=== PATIENT | female | born 1985 | race Caucasian/White ===

== ENCOUNTER 2017-04-23 02:48 | Emergency (ER) | payer MEDICAID ==
[2017-04-23 02:55] VITALS: TEMP 97.7
[2017-04-23] MEDS ORDERED: SODIUM CHLORIDE 0.9% 1,000 ML IV STA (03:03)
[2017-04-23] MEDS ORDERED: ONDANSETRON 4 MG/2 ML VIAL IVP STA (03:03)
[2017-04-23] MEDS ORDERED: MORPHINE SULFATE 4 MG/ML SYRINGE IV STA (03:03)
--- NOTE | 2017-04-23 03:06 | ED ---
General Adult HPI - General Chief complaint: Nausea/Vomiting/Diarrhea Stated complaint: Abd pain, SOB Time Seen by Provider: 04/23/17 03:01 Source: patient, RN notes reviewed Mode of arrival: wheelchair Limitations: no limitations - History of Present Illness Initial comments: 31-year-old female presents emergency Department chief complaint abdominal pain , nausea diarrhea. Patient states it woke up out of sleep. Patient states she has epigastric pain. She states it's nonradiating. She's had prior appendectomy no other abdominal surgeries. Denies any chest pain. She states that the pain is making her short of breath though she got short of breath at rest. Patient denies any fevers or chills. Denies dysuria, hematuria, flank pain, chance , sick contacts. Patient denies any other complaints. - Related Data Home Medications Medication Instructions Recorded Confirmed ALPRAZolam [Xanax] 0.25 mg PO Q8HR PRN 08/29/15 08/29/15 Eletriptan [Relpax] 40 mg PO DAILY PRN 08/29/15 08/29/15 Levothyroxine Sodium [Synthroid] 25 mcg PO DAILY 08/29/15 08/29/15 Multivitamins, Thera [Theragran] 1 each PO DAILY@1200 08/29/15 08/29/15 Vortioxetine Hydrobromide 20 mg PO DAILY 08/29/15 08/29/15 [Brintellix] metFORMIN HCL [Glucophage] 500 mg PO TID 08/29/15 08/29/15 Allergies Allergy/AdvReac Type Severity Reaction Status Date / Time horse radish Allergy Anaphylaxis Uncoded 04/23/17 02:55 olives Allergy Rash/Hives Uncoded 04/23/17 02:55 Review of Systems ROS Statement: Those systems with pertinent positive or pertinent negative responses have been documented in the HPI. ROS Other: All systems not noted in ROS Statement are negative. Past Medical History Past Medical History: Thyroid Disorder Additional Past Medical History / Comment(s): Insulin Resistance History of Any Multi-Drug Resistant Organisms: None Reported Past Surgical History: Appendectomy Additional Past Surgical History / Comment(s): D&C Past Psychological History: Anxiety, Depression Smoking Status: Never smoker Past Alcohol Use History: None Reported Past Drug Use History: None Reported General Exam Limitations: no limitations General appearance: alert, in no apparent distress ENT exam: Present: normal oropharynx Neck exam: Present: normal inspection, full ROM. Absent: tenderness, meningismus, lymphadenopathy Respiratory exam: Present: normal lung sounds bilaterally. Absent: respiratory distress, wheezes, rales, rhonchi, stridor Cardiovascular Exam: Present: regular rate, normal rhythm, normal heart sounds. Absent: systolic murmur, diastolic murmur, rubs, gallop, clicks GI/Abdominal exam: Present: soft, tenderness (Monitor epigastric tenderness), normal bowel sounds. Absent: distended, guarding, rebound, rigid Back exam: Absent: CVA tenderness (R), CVA tenderness (L) Neurological exam: Present: alert Skin exam: Present: warm, dry, intact, normal color. Absent: rash Course Vital Signs 04/23/17 04/23/17 02:51 03:18 Temperature 97.7 F Pulse Rate 70 Respiratory 20 Rate Blood Pressure 87/54 121/60 O2 Sat by Pulse 97 Oximetry Medical Decision Making - Medical Decision Making 31-year-old female presented emergency department for epigastric abdominal pain. Patient states pain has completely resolved. She states she feels much better. Nausea has resolved. Patient's lab work showed minimal elevation in white count and liver functions. Patient's pain is not right upper quadrant she has more epigastric to left upper quadrant. Patient will be discharged at this time with close follow-up. - Lab Data Result diagrams: 04/23/17 03:15 04/23/17 03:15 Lab Results 04/23/17 04/23/17 04/23/17 Range/Units 03:15 03:15 03:15 WBC 14.2 H (3.8-10.6) k/uL RBC 4.87 (3.80-5.40) m/uL Hgb 13.8 (11.4-16.0) gm/dL Hct 41.8 (34.0-46.0) % MCV 85.8 (80.0-100.0) fL MCH 28.4 (25.0-35.0) pg MCHC 33.1 (31.0-37.0) g/dL RDW 13.2 (11.5-15.5) % Plt Count 375 (150-450) k/uL Neutrophils % 65 % Lymphocytes % 27 % Monocytes % 5 % Eosinophils % 0 % Basophils % 0 % Neutrophils # 9.3 H (1.3-7.7) k/uL Lymphocytes # 3.9 (1.0-4.8) k/uL Monocytes # 0.8 (0-1.0) k/uL Eosinophils # 0.0 (0-0.7) k/uL Basophils # 0.1 (0-0.2) k/uL Sodium 140 (137-145) mmol/L Potassium 4.1 (3.5-5.1) mmol/L Chloride 107 (98-107) mmol/L Carbon Dioxide 21 L (22-30) mmol/L Anion Gap 12 mmol/L BUN 12 (7-17) mg/dL Creatinine 0.70 (0.52-1.04) mg/dL Est GFR (MDRD) Af Amer >60 (>60 ml/min/1.73 sqM) Est GFR (MDRD) Non-Af >60 (>60 ml/min/1.73 sqM) Glucose 113 H (74-99) mg/dL Calcium 9.9 (8.4-10.2) mg/dL Total Bilirubin 0.7 (0.2-1.3) mg/dL AST 126 H (14-36) U/L ALT 96 H (9-52) U/L Alkaline Phosphatase 125 (38-126) U/L Total Protein 7.2 (6.3-8.2) g/dL Albumin 4.2 (3.5-5.0) g/dL Amylase 53 (30-110) U/L Lipase 61 (23-300) U/L Urine Color Urine Appearance (Clear) Urine pH (5.0-8.0) Ur Specific Jber (1.001-1.035) Urine Protein (Negative) Urine Glucose (UA) (Negative) Urine Ketones (Negative) Urine Blood (Negative) Urine Nitrite (Negative) Urine Bilirubin (Negative) Urine Urobilinogen (<2.0) mg/dL Ur Leukocyte Esterase (Negative) Urine RBC (0-5) /hpf Ur Squamous Epith Cells (0-4) /hpf Urine Mucus (None) /hpf Urine HCG, Qual Not Detected (Not Detectd) 04/23/17 Range/Units 03:15 WBC (3.8-10.6) k/uL RBC (3.80-5.40) m/uL Hgb (11.4-16.0) gm/dL Hct (34.0-46.0) % MCV (80.0-100.0) fL MCH (25.0-35.0) pg MCHC (31.0-37.0) g/dL RDW (11.5-15.5) % Plt Count (150-450) k/uL Neutrophils % % Lymphocytes % % Monocytes % % Eosinophils % % Basophils % % Neutrophils # (1.3-7.7) k/uL Lymphocytes # (1.0-4.8) k/uL Monocytes # (0-1.0) k/uL Eosinophils # (0-0.7) k/uL Basophils # (0-0.2) k/uL Sodium (137-145) mmol/L Potassium (3.5-5.1) mmol/L Chloride (98-107) mmol/L Carbon Dioxide (22-30) mmol/L Anion Gap mmol/L BUN (7-17) mg/dL Creatinine (0.52-1.04) mg/dL Est GFR (MDRD) Af Amer (>60 ml/min/1.73 sqM) Est GFR (MDRD) Non-Af (>60 ml/min/1.73 sqM) Glucose (74-99) mg/dL Calcium (8.4-10.2) mg/dL Total Bilirubin (0.2-1.3) mg/dL AST (14-36) U/L ALT (9-52) U/L Alkaline Phosphatase (38-126) U/L Total Protein (6.3-8.2) g/dL Albumin (3.5-5.0) g/dL Amylase (30-110) U/L Lipase (23-300) U/L Urine Color Yellow Urine Appearance Cloudy H (Clear) Urine pH 8.0 (5.0-8.0) Ur Specific Jber 1.017 (1.001-1.035) Urine Protein Trace H (Negative) Urine Glucose (UA) Negative (Negative) Urine Ketones Negative (Negative) Urine Blood Negative (Negative) Urine Nitrite Negative (Negative) Urine Bilirubin Negative (Negative) Urine Urobilinogen 2.0 (<2.0) mg/dL Ur Leukocyte Esterase Negative (Negative) Urine RBC 1 (0-5) /hpf Ur Squamous Epith Cells 2 (0-4) /hpf Urine Mucus Rare H (None) /hpf Urine HCG, Qual (Not Detectd) Disposition Clinical Impression: Abdominal pain, Nausea, Diarrhea Disposition: HOME SELF-CARE Condition: Stable Instructions: Abdominal Pain (ED) Additional Instructions: Please return to the Emergency Department if symptoms worsen or any other concerns. Referrals: Humble Babb MD [Primary Care Provider] - 1-2 days Time of Disposition: 03:53
[2017-04-23 03:24] VITALS: BP 121/60
[2017-04-23 03:31] LABS: Basophils # (A) 0.1 k/uL (0-0.2); Basophils % (A) 0 %; CH 29.2; CHCM 34.2; Eosinophils % (A) 0 %; HCT 41.8 % (34.0-46.0); HDW 2.43; HGB 13.8 gm/dL (11.4-16.0); Luc # (Auto) 0.23; Luc % (Auto) 2; Lymphocytes # (A) 3.9 k/uL (1.0-4.8); Lymphocytes % (A) 27 %; MCH 28.4 pg (25.0-35.0); MCHC 33.1 g/dL (31.0-37.0); MCV 85.8 fL (80.0-100.0); Mean Platelet Volume 6.1; Monocytes # (A) 0.8 k/uL (0-1.0); Monocytes % (A) 5 %; Neutrophils # (A) 9.3 k/uL (1.3-7.7); Neutrophils % (A) 65 %; RBC 4.87 m/uL (3.80-5.40); RDW 13.2 % (11.5-15.5); WBC 14.2 k/uL (3.8-10.6)
[2017-04-23 03:41] LABS: Appearance,Urine Cloudy (Clear); Bilirubin,Urine Negative (Negative); Glucose,Urine (UA) Negative (Negative); Ketones,Urine Negative (Negative); Leukocyte Esterase,Urine Negative (Negative); Mucus,Urine Rare /hpf; Nitrite,Urine Negative (Negative); Particle Count 8620; Protein,Urine Trace (Negative); RBC,Urine 1 /hpf (0-5); Specific Gravity,Urine 1.017 (1.001-1.035); Squamous Epithelial Cell,Urine 2 /hpf (0-4); UA Billing (MACRO vs. MICRO) MICRO
[2017-04-23 03:46] LABS: ALT 96 U/L (9-52); AST 126 U/L (14-36); Alkaline Phosphatase 125 U/L (38-126); Amylase 53 U/L (30-110); Anion Gap 12 mmol/L; Blood Urea Nitrogen 12 mg/dL (7-17); Calcium 9.9 mg/dL (8.4-10.2); Carbon Dioxide 21 mmol/L (22-30); Chloride 107 mmol/L (98-107); Glucose 113 mg/dL (74-99); Non-African American GFR(MDRD) >60 (>60 ml/min/1.73 sqM); Potassium 4.1 mmol/L (3.5-5.1); Sodium 140 mmol/L (137-145); Total Bilirubin 0.7 mg/dL (0.2-1.3); Total Protein 7.2 g/dL (6.3-8.2)
[2017-04-23 04:02] VITALS: PULSE 76; RESP 18
--- NOTE | 2017-04-23 04:12 | XR ---
EXAM: XR Abdomen Complete, 2 or More Views CLINICAL HISTORY: Reason: pain TECHNIQUE: Frontal view of the abdomen/pelvis with upright view of the abdomen. COMPARISON: No relevant prior studies available. FINDINGS: Intraperitoneal space: No free air. Surgical clips are seen within the right lower quadrant. Gastrointestinal tract: Unremarkable. No dilation. Bones/joints: Unremarkable. IMPRESSION: No acute intra-abdominal findings.
== END 2017-04-23 03:56 | disposition home or self-care (01) ==
LOC: EC 02:48
DX: R10.13 Epigastric pain (principal); R11.0 Nausea; R19.7 Diarrhea, unspecified; E07.9 Disorder of thyroid, unspecified; F32.9 Major depressive disorder, single episode, unspecified; Z91.018 Allergy to other foods; Z91.048 Other nonmedicinal substance allergy status; Z79.84 Long term (current) use of oral hypoglycemic drugs; Z79.899 Other long term (current) drug therapy
CPT/HCPCS: 99284; 96374; 96375; 96361; 36415; 80053; 82150; 83690; 85025; 81001; 81025; 74000; J2270; J2405

== ENCOUNTER 2017-06-17 21:01 | Inpatient (IN) | payer MEDICAID ==
[2017-06-17] MEDS ORDERED: SODIUM CHLORIDE 0.9% 1,000 ML IV STA (21:13)
[2017-06-17] MEDS ORDERED: ONDANSETRON 4 MG/2 ML VIAL IVP STA (21:13)
[2017-06-17] MEDS ORDERED: HYDROmorphone 1 MG/ML 1 ML SYRINGE IVP STA (21:13)
--- NOTE | 2017-06-17 21:20 | ED ---
Abdominal Pain HPI - General Source: patient, RN notes reviewed Mode of arrival: ambulatory Limitations: no limitations - History of Present Illness MD Complaint: abdominal pain <Toan Sarkar - Last Filed: 06/17/17 23:11> <Ty Saldivar - Last Filed: 06/18/17 01:02> - General Chief Complaint: Abdominal Pain Stated Complaint: Vomiting Time Seen by Provider: 06/17/17 21:09 - History of Present Illness Initial Comments: This is a pleasant 31-year-old female presents emergency department complaining of abdominal pain. Patient states that about 3 hours ago she had sudden onset of right upper quadrant abdominal pain. Pain is sharp in nature, there are no alleviating or exacerbating factors. Patient does state that she ate fried chicken at about 3 PM. Patient has vomited several times. There is no evidence of hematemesis or coffee-ground emesis. No problems with bowel movements or urination. Patient denies . Patient denies shortness of breath. Pain does radiate around to the right shoulder blade area. Patient has had pain such as this before however, this is the worst time ever. She was told previously that was a bowel spasm. (Toan Sarkar) - Related Data Home Medications Medication Instructions Recorded Confirmed ALPRAZolam [Xanax] 0.25 mg PO Q8HR PRN 08/29/15 08/29/15 Eletriptan [Relpax] 40 mg PO DAILY PRN 08/29/15 08/29/15 Levothyroxine Sodium [Synthroid] 25 mcg PO DAILY 08/29/15 08/29/15 Multivitamins, Thera [Theragran] 1 each PO DAILY@1200 08/29/15 08/29/15 Vortioxetine Hydrobromide 20 mg PO DAILY 08/29/15 08/29/15 [Brintellix] metFORMIN HCL [Glucophage] 500 mg PO TID 08/29/15 08/29/15 Allergies Allergy/AdvReac Type Severity Reaction Status Date / Time horse radish Allergy Anaphylaxis Uncoded 04/23/17 02:55 olives Allergy Rash/Hives Uncoded 04/23/17 02:55 Review of Systems ROS Other: All systems not noted in ROS Statement are negative. <Toan Sarkar - Last Filed: 06/17/17 23:11> ROS Other: All systems not noted in ROS Statement are negative. <Ty Saldivar - Last Filed: 06/18/17 01:02> ROS Statement: Those systems with pertinent positive or pertinent negative responses have been documented in the HPI. Past Medical History Past Medical History: Thyroid Disorder Additional Past Medical History / Comment(s): Insulin Resistance, depression, anxiety History of Any Multi-Drug Resistant Organisms: None Reported Past Surgical History: Appendectomy Additional Past Surgical History / Comment(s): D&C Past Psychological History: Anxiety, Depression Smoking Status: Never smoker Past Alcohol Use History: None Reported Past Drug Use History: None Reported <MelloToan - Last Filed: 06/17/17 23:11> General Exam Limitations: no limitations General appearance: alert, in distress Head exam: Present: atraumatic, normocephalic, normal inspection Eye exam: Present: normal appearance, EOMI. Absent: scleral icterus ENT exam: Present: normal exam, normal oropharynx, mucous membranes moist, normal external ear exam Neck exam: Present: normal inspection. Absent: tenderness, meningismus, lymphadenopathy Respiratory exam: Present: normal lung sounds bilaterally. Absent: respiratory distress, wheezes, rales, rhonchi, stridor Cardiovascular Exam: Present: regular rate, normal rhythm, normal heart sounds. Absent: systolic murmur, diastolic murmur, rubs, gallop, clicks GI/Abdominal exam: Present: tenderness, guarding, diminished bowel sounds, other (Positive Bob sign). Absent: rebound, rigid Expanded GI/Abdominal exam: Present: Bob's sign. Absent: psoas sign, obturator sign, heel tap sign, Rovsing's sign, tenderness at McBurney's Point, ascites Rectal exam: Present: deferred Extremities exam: Present: normal inspection, full ROM, normal capillary refill. Absent: tenderness, pedal edema, joint swelling, calf tenderness Back exam: Present: normal inspection Neurological exam: Present: alert, oriented X3, CN II-XII intact Psychiatric exam: Present: normal affect, normal mood Skin exam: Present: warm, dry, intact, normal color. Absent: rash <Toan Sarkar - Last Filed: 06/17/17 23:11> <Ty Saldivar - Last Filed: 06/18/17 01:02> - General Exam Comments Initial Comments: This is a 30-year-old female presents emergency Department in significant distress due to right upper quadrant abdominal pain (Toan Sarkar) Medical Decision Making - Lab Data Result diagrams: 06/17/17 21:20 06/17/17 21:20 <MelloToan - Last Filed: 06/17/17 23:11> - Lab Data Result diagrams: 06/17/17 21:20 06/17/17 21:20 <Ty Saldivar - Last Filed: 06/18/17 01:02> - Medical Decision Making Patient will be endorsed to Dr. Saldivar at 11:11 PM for further care and disposition. (Toan Sarkar) Vital decision making the patient's pain is a right upper quadrant. White count elevated at 21,000 with 70% neutrophils. Elevated AST ALT but her total bilirubin is only 0.9. Amylase lipase normal limits.She was started on Zosyn. The patient had eaten fried chicken earlier 3 hours prior to emergency room she is having severe right upper quadrant pain. KUB was done reviewed by radiologist and his impression is nonobstructive bowel gas pattern. Nonspecific 1 cm radial density projecting over the right iliac bone is discussed. As read by Dr. Sousa X-ray of the chest was done and reviewed by radiologist his impression is no focal consolidation as read by Dr. Sousa Ultrasound of the right upper quadrant was done because of the patient's symptoms. His radiologist's impression is liver measures approximately 16.5 cm. There is suggestion of fatty infiltration. The gallbladder is mildly distended. However, no gallstone is seen. No pericholecystic fluid or gallbladder wall thickening was demonstrated. Negative sonographic Bob's was reported., Bile duct is distended to approximately 9 mm in caliber. No sonographic evidence for choledocholithiasis. Right kidney is unremarkable. The pancreas mildly echogenic. Correlate with amylase and lipase. This is a nonspecific finding. The pancreatic tail is obscured by overlying bowel gas. Impression is #1 dilated common bile duct without sonographic evidence for choledocholithiasis. #2 hepatic steatosis. #3 questionable echogenicity of the pancreas. Nonspecific. Correlate with amylase lipase. As read by Dr. Sousa patient's feeling significantly better after IV hydration and pain medication. I did discuss with her gallbladder issues, gallstones, common bile duct stones, pancreatic stone or inflammation or problems. The plan the patient will be admitted to the hospital for evaluation by general surgery. She has seen Dr. Sweeney in the past who performed an appendectomy. (Ty Saldivar) - Lab Data Lab Results 06/17/17 06/17/17 06/17/17 Range/Units 21:20 21:20 21:20 WBC 21.9 H (3.8-10.6) k/uL RBC 5.13 (3.80-5.40) m/uL Hgb 14.8 (11.4-16.0) gm/dL Hct 44.3 (34.0-46.0) % MCV 86.2 (80.0-100.0) fL MCH 28.8 (25.0-35.0) pg MCHC 33.4 (31.0-37.0) g/dL RDW 14.0 (11.5-15.5) % Plt Count 430 (150-450) k/uL Neutrophils % 80 % Lymphocytes % 15 % Monocytes % 4 % Eosinophils % 0 % Basophils % 0 % Neutrophils # 17.5 H (1.3-7.7) k/uL Lymphocytes # 3.2 (1.0-4.8) k/uL Monocytes # 1.0 (0-1.0) k/uL Eosinophils # 0.0 (0-0.7) k/uL Basophils # 0.1 (0-0.2) k/uL PT 10.3 (9.0-12.0) sec INR 1.0 (<1.2) APTT 23.1 (22.0-30.0) sec Sodium 141 (137-145) mmol/L Potassium 3.9 (3.5-5.1) mmol/L Chloride 104 (98-107) mmol/L Carbon Dioxide 21 L (22-30) mmol/L Anion Gap 16 mmol/L BUN 15 (7-17) mg/dL Creatinine 0.80 (0.52-1.04) mg/dL Est GFR (MDRD) Af Amer >60 (>60 ml/min/1.73 sqM) Est GFR (MDRD) Non-Af >60 (>60 ml/min/1.73 sqM) Glucose 156 H (74-99) mg/dL Plasma Lactic Acid Jonathon (0.7-2.0) mmol/L Calcium 10.0 (8.4-10.2) mg/dL Total Bilirubin 0.9 (0.2-1.3) mg/dL AST 136 H (14-36) U/L ALT 91 H (9-52) U/L Alkaline Phosphatase 149 H (38-126) U/L Total Protein 7.8 (6.3-8.2) g/dL Albumin 4.8 (3.5-5.0) g/dL Amylase (30-110) U/L Lipase 62 (23-300) U/L Urine Color Urine Appearance (Clear) Urine pH (5.0-8.0) Ur Specific Ray (1.001-1.035) Urine Protein (Negative) Urine Glucose (UA) (Negative) Urine Ketones (Negative) Urine Blood (Negative) Urine Nitrite (Negative) Urine Bilirubin (Negative) Urine Urobilinogen (<2.0) mg/dL Ur Leukocyte Esterase (Negative) Ur Squamous Epith Cells (0-4) /hpf Amorphous Sediment (None) /hpf Urine Mucus (None) /hpf Urine HCG, Qual (Not Detectd) 06/17/17 06/17/17 06/17/17 Range/Units 21:20 22:23 22:23 WBC (3.8-10.6) k/uL RBC (3.80-5.40) m/uL Hgb (11.4-16.0) gm/dL Hct (34.0-46.0) % MCV (80.0-100.0) fL MCH (25.0-35.0) pg MCHC (31.0-37.0) g/dL RDW (11.5-15.5) % Plt Count (150-450) k/uL Neutrophils % % Lymphocytes % % Monocytes % % Eosinophils % % Basophils % % Neutrophils # (1.3-7.7) k/uL Lymphocytes # (1.0-4.8) k/uL Monocytes # (0-1.0) k/uL Eosinophils # (0-0.7) k/uL Basophils # (0-0.2) k/uL PT (9.0-12.0) sec INR (<1.2) APTT (22.0-30.0) sec Sodium (137-145) mmol/L Potassium (3.5-5.1) mmol/L Chloride (98-107) mmol/L Carbon Dioxide (22-30) mmol/L Anion Gap mmol/L BUN (7-17) mg/dL Creatinine (0.52-1.04) mg/dL Est GFR (MDRD) Af Amer (>60 ml/min/1.73 sqM) Est GFR (MDRD) Non-Af (>60 ml/min/1.73 sqM) Glucose (74-99) mg/dL Plasma Lactic Acid Jonathon (0.7-2.0) mmol/L Calcium (8.4-10.2) mg/dL Total Bilirubin (0.2-1.3) mg/dL AST (14-36) U/L ALT (9-52) U/L Alkaline Phosphatase (38-126) U/L Total Protein (6.3-8.2) g/dL Albumin (3.5-5.0) g/dL Amylase 44 (30-110) U/L Lipase (23-300) U/L Urine Color Yellow Urine Appearance Cloudy H (Clear) Urine pH 8.0 (5.0-8.0) Ur Specific Ray 1.020 (1.001-1.035) Urine Protein 1+ H (Negative) Urine Glucose (UA) Negative (Negative) Urine Ketones 2+ H (Negative) Urine Blood Negative (Negative) Urine Nitrite Negative (Negative) Urine Bilirubin Negative (Negative) Urine Urobilinogen <2.0 (<2.0) mg/dL Ur Leukocyte Esterase Negative (Negative) Ur Squamous Epith Cells 3 (0-4) /hpf Amorphous Sediment Rare H (None) /hpf Urine Mucus Rare H (None) /hpf Urine HCG, Qual Not Detected (Not Detectd) 06/17/17 Range/Units 22:23 WBC (3.8-10.6) k/uL RBC (3.80-5.40) m/uL Hgb (11.4-16.0) gm/dL Hct (34.0-46.0) % MCV (80.0-100.0) fL MCH (25.0-35.0) pg MCHC (31.0-37.0) g/dL RDW (11.5-15.5) % Plt Count (150-450) k/uL Neutrophils % % Lymphocytes % % Monocytes % % Eosinophils % % Basophils % % Neutrophils # (1.3-7.7) k/uL Lymphocytes # (1.0-4.8) k/uL Monocytes # (0-1.0) k/uL Eosinophils # (0-0.7) k/uL Basophils # (0-0.2) k/uL PT (9.0-12.0) sec INR (<1.2) APTT (22.0-30.0) sec Sodium (137-145) mmol/L Potassium (3.5-5.1) mmol/L Chloride (98-107) mmol/L Carbon Dioxide (22-30) mmol/L Anion Gap mmol/L BUN (7-17) mg/dL Creatinine (0.52-1.04) mg/dL Est GFR (MDRD) Af Amer (>60 ml/min/1.73 sqM) Est GFR (MDRD) Non-Af (>60 ml/min/1.73 sqM) Glucose (74-99) mg/dL Plasma Lactic Acid Jonathon 1.3 (0.7-2.0) mmol/L Calcium (8.4-10.2) mg/dL Total Bilirubin (0.2-1.3) mg/dL AST (14-36) U/L ALT (9-52) U/L Alkaline Phosphatase (38-126) U/L Total Protein (6.3-8.2) g/dL Albumin (3.5-5.0) g/dL Amylase (30-110) U/L Lipase (23-300) U/L Urine Color Urine Appearance (Clear) Urine pH (5.0-8.0) Ur Specific Ray (1.001-1.035) Urine Protein (Negative) Urine Glucose (UA) (Negative) Urine Ketones (Negative) Urine Blood (Negative) Urine Nitrite (Negative) Urine Bilirubin (Negative) Urine Urobilinogen (<2.0) mg/dL Ur Leukocyte Esterase (Negative) Ur Squamous Epith Cells (0-4) /hpf Amorphous Sediment (None) /hpf Urine Mucus (None) /hpf Urine HCG, Qual (Not Detectd) Disposition <Toan Sarkar - Last Filed: 06/17/17 23:11> <Ty Saldivar - Last Filed: 06/18/17 01:02> Clinical Impression: Systemic inflammatory response syndrome (SIRS), Acute abdominal pain in right upper quadrant Disposition: ADMITTED IP TO THIS HOSP Condition: Stable Referrals: Humble Babb MD [Primary Care Provider] - 1-2 days
[2017-06-17 21:41] LABS: ALT 91 U/L (9-52); AST 136 U/L (14-36); Alkaline Phosphatase 149 U/L (38-126); Anion Gap 16 mmol/L; Blood Urea Nitrogen 15 mg/dL (7-17); Carbon Dioxide 21 mmol/L (22-30); Chloride 104 mmol/L (98-107); Glucose 156 mg/dL (74-99); Non-African American GFR(MDRD) >60 (>60 ml/min/1.73 sqM); Potassium 3.9 mmol/L (3.5-5.1); Sodium 141 mmol/L (137-145); Total Bilirubin 0.9 mg/dL (0.2-1.3); Total Protein 7.8 g/dL (6.3-8.2)
[2017-06-17 21:45] LABS: Basophils # (A) 0.1 k/uL (0-0.2); Basophils % (A) 0 %; CH 29.9; CHCM 34.8; Eosinophils % (A) 0 %; HCT 44.3 % (34.0-46.0); HDW 2.48; HGB 14.8 gm/dL (11.4-16.0); Luc # (Auto) 0.19; Luc % (Auto) 1; Lymphocytes # (A) 3.2 k/uL (1.0-4.8); Lymphocytes % (A) 15 %; MCH 28.8 pg (25.0-35.0); MCHC 33.4 g/dL (31.0-37.0); MCV 86.2 fL (80.0-100.0); Monocytes % (A) 4 %; Neutrophils # (A) 17.5 k/uL (1.3-7.7); Neutrophils % (A) 80 %; RBC 5.13 m/uL (3.80-5.40); WBC 21.9 k/uL (3.8-10.6); WBC (Perox) 22.54
[2017-06-17 21:48] LABS: Partial Thromboplastin Time 23.1 sec (22.0-30.0); Prothrombin Time 10.3 sec (9.0-12.0)
[2017-06-17] MEDS ORDERED: PIPERACILLIN-TAZOBACTAM 3.375 GM in DEXTROSE/WATER 1 50ML.BAG IVPB STA (22:03)
[2017-06-17 22:51] LABS: Amorphous Sediment,Urine Rare /hpf; Appearance,Urine Cloudy (Clear); Bilirubin,Urine Negative (Negative); Glucose,Urine (UA) Negative (Negative); Ketones,Urine 2+ (Negative); Leukocyte Esterase,Urine Negative (Negative); Mucus,Urine Rare /hpf; Nitrite,Urine Negative (Negative); Particle Count 15226; Protein,Urine 1+ (Negative); Squamous Epithelial Cell,Urine 3 /hpf (0-4); UA Billing (MACRO vs. MICRO) MICRO; Urobilinogen,Urine <2.0 mg/dL (<2.0)
--- NOTE | 2017-06-17 23:11 | US ---
Exam: US GALLBLADDER History: Pain. Comparison: No prior ultrasound. Technique: Grayscale and color images were obtained. Findings: The liver measures approximately 16.5 cm. There is suggestion of fatty infiltration. The gallbladder is mildly distended. However, no gallstone is seen. No pericholecystic fluid or gallbladder wall thickening was demonstrated. Negative sonographic Bob's was reported. The CBD is distended to approximately 9 mm in caliber. No sonographic evidence for choledocholithiasis. The right kidney is unremarkable. The pancreas is slightly echogenic. Correlate with amylase and lipase. This is a nonspecific finding. The pancreatic tail is obscured by overlying bowel gas. Impression: 1. Dilated CBD without sonographic evidence for choledocholithiasis. 2. Hepatic steatosis. 3. Questionable echogenicity of the pancreas. Nonspecific. Correlate with amylase and lipase.
[2017-06-17] MEDS: SODIUM CHLORIDE 0.9% 500 ML IV SCH (23:23)
--- NOTE | 2017-06-17 23:37 | XR ---
Exam: XR CXR 1 VIEW History: Abdominal pain. Right upper quadrant pain and nausea. Comparison: None provided. Technique: Single frontal view. Findings: No focal consolidation or significant effusion. Cardiomediastinal silhouette is unremarkable. Impression: No focal consolidation.
--- NOTE | 2017-06-17 23:40 | XR ---
Exam: XR KUB History: Abdominal pain. Comparison: 04/23/17. Technique: Single frontal view. Findings: No dilated loop of bowel to suggest obstruction. There is a small radiodensity projecting over the right iliac bone. This is nonspecific. It may potentially overlie the patient. Correlate clinically. Correlate for surgical history. Impression: Nonobstructive bowel gas pattern. Nonspecific 1 cm radiodensity projecting over the right iliac bone as discussed above.
[2017-06-18] MEDS ORDERED: NALOXONE 0.4 MG/ML 1 ML VIAL IV PRN (01:02)
[2017-06-18] MEDS: SODIUM CHLORIDE 0.9% 500 ML IV SCH (01:21)
[2017-06-18] MEDS: SODIUM CHLORIDE 0.9% 1,000 ML IV SCH ×3 (01:23→18:18)
[2017-06-18] MEDS: HYDROmorphone 1 MG/ML 1 ML SYRINGE IV PRN ×2 (02:46→14:04)
[2017-06-18] MEDS ORDERED: INSULIN LISPRO (humaLOG) 300 UNIT/3 ML VIAL SQ SCH (07:30)
[2017-06-18 07:43] LABS: Glucose,Whole Blood 69 mg/dL (75-99)
[2017-06-18] MEDS: FAMOTIDINE 20 MG/2 ML VIAL IV SCH (09:01)
[2017-06-18] MEDS: ACETAMINOPHEN TAB 325 MG TAB PO PRN (09:28)
[2017-06-18] MEDS: ONDANSETRON 4 MG/2 ML VIAL IVP PRN ×2 (09:35→17:04)
[2017-06-18] MEDS: PIPERACILLIN-TAZOBACTAM 3.375 GM in DEXTROSE/WATER 1 50ML.BAG IVPB SCH ×2 (09:52→17:08)
[2017-06-18] MEDS ORDERED: RX INFO: IV CONTRAST WAS GIVEN 1 EACH MISC MISCELLANE PRN (10:01)
--- NOTE | 2017-06-18 10:07 | P.GSHP ---
History of Present Illness H&P Date: 06/18/17 Chief Complaint: right upper quadrant pain patient came to the hospital after she began experiencing pain in the right upper quadrant around 6 PM last night. she had an episode that was mild her in April of this year. She has had episodes of nausea and vomiting. Pain radiated to the right shoulder. she apparently knows Dr. Louis from a prior appendectomy and in the emergency Department requested his service. pain is slightly better today. liver enzymes are slightly elevated. White blood cell count is significantly elevated. denies fevers. She had an ultrasound which showed a slightly prominent common bile duct but no evidence of gallstones. the patient's significant other does have hepatitis C. she has never tested positive before. denies any change in the color of her skin urine or stool. - Review of Systems Comment: The patient denies any acute changes in vision or hearing, no dysphagia or odynophagia, no chest pain or shortness of breath, no dysuria or hematuria, no headache, no runny nose, no rectal bleeding or melena, no unexplained weight loss Past Medical History Past Medical History: Sleep Apnea/CPAP/BIPAP, Thyroid Disorder Additional Past Medical History / Comment(s): Insulin Resistance, depression, anxiety History of Any Multi-Drug Resistant Organisms: None Reported Past Surgical History: Appendectomy Additional Past Surgical History / Comment(s): D&C, third molar removal Additional Past Anesthesia/Blood Transfusion Reaction / Comment(s): "Hard time waking up" Past Psychological History: Anxiety, Depression Additional Psychological History / Comment(s): not diagnosed with PTSD but does have nightmare Smoking Status: Never smoker Past Alcohol Use History: None Reported Past Drug Use History: None Reported - Past Family History Mother Additional Family Medical History / Comment(s): schizophrenia Medications and Allergies Home Medications Medication Instructions Recorded Confirmed Type ALPRAZolam [Xanax] 0.25 mg PO Q8HR PRN 08/29/15 06/18/17 History Eletriptan [Relpax] 40 mg PO DAILY PRN 08/29/15 06/18/17 History Vortioxetine Hydrobromide 20 mg PO DAILY 06/18/17 06/18/17 History [Trintellix] Allergies Allergy/AdvReac Type Severity Reaction Status Date / Time horse radish Allergy Anaphylaxis Uncoded 04/23/17 02:55 olives Allergy Rash/Hives Uncoded 04/23/17 02:55 Surgical - Exam Vital Signs Temp Pulse Resp BP Pulse Ox 97.4 F L 93 18 121/72 99 06/17/17 21:06 06/17/17 21:06 06/17/17 21:06 06/17/17 21:06 06/17/17 21:06 Physical exam: General: Well-developed, well-nourished HEENT: Normocephalic, sclerae nonicteric Abdomen: mild right upper quadrant tenderness, nondistended Extremities: No edema Neuro: Alert and oriented Results - Labs 06/17/17 21:20 06/17/17 21:20 Abnormal Lab Results - Last 24 Hours (Table) 06/17/17 06/17/17 06/17/17 Range/Units 21:20 21:20 22:23 WBC 21.9 H (3.8-10.6) k/uL Neutrophils # 17.5 H (1.3-7.7) k/uL Carbon Dioxide 21 L (22-30) mmol/L Glucose 156 H (74-99) mg/dL POC Glucose (mg/dL) (75-99) mg/dL AST 136 H (14-36) U/L ALT 91 H (9-52) U/L Alkaline Phosphatase 149 H (38-126) U/L Urine Appearance Cloudy H (Clear) Urine Protein 1+ H (Negative) Urine Ketones 2+ H (Negative) Amorphous Sediment Rare H (None) /hpf Urine Mucus Rare H (None) /hpf 06/18/17 Range/Units 07:30 WBC (3.8-10.6) k/uL Neutrophils # (1.3-7.7) k/uL Carbon Dioxide (22-30) mmol/L Glucose (74-99) mg/dL POC Glucose (mg/dL) 69 L (75-99) mg/dL AST (14-36) U/L ALT (9-52) U/L Alkaline Phosphatase (38-126) U/L Urine Appearance (Clear) Urine Protein (Negative) Urine Ketones (Negative) Amorphous Sediment (None) /hpf Urine Mucus (None) /hpf Diabetes panel 06/17/17 Range/Units 21:20 Sodium 141 (137-145) mmol/L Potassium 3.9 (3.5-5.1) mmol/L Chloride 104 (98-107) mmol/L Carbon Dioxide 21 L (22-30) mmol/L BUN 15 (7-17) mg/dL Creatinine 0.80 (0.52-1.04) mg/dL Glucose 156 H (74-99) mg/dL Calcium 10.0 (8.4-10.2) mg/dL AST 136 H (14-36) U/L ALT 91 H (9-52) U/L Alkaline Phosphatase 149 H (38-126) U/L Total Protein 7.8 (6.3-8.2) g/dL Albumin 4.8 (3.5-5.0) g/dL Calcium panel 06/17/17 Range/Units 21:20 Calcium 10.0 (8.4-10.2) mg/dL Albumin 4.8 (3.5-5.0) g/dL Pituitary panel 06/17/17 Range/Units 21:20 Sodium 141 (137-145) mmol/L Potassium 3.9 (3.5-5.1) mmol/L Chloride 104 (98-107) mmol/L Carbon Dioxide 21 L (22-30) mmol/L BUN 15 (7-17) mg/dL Creatinine 0.80 (0.52-1.04) mg/dL Glucose 156 H (74-99) mg/dL Calcium 10.0 (8.4-10.2) mg/dL Adrenal panel 06/17/17 Range/Units 21:20 Sodium 141 (137-145) mmol/L Potassium 3.9 (3.5-5.1) mmol/L Chloride 104 (98-107) mmol/L Carbon Dioxide 21 L (22-30) mmol/L BUN 15 (7-17) mg/dL Creatinine 0.80 (0.52-1.04) mg/dL Glucose 156 H (74-99) mg/dL Calcium 10.0 (8.4-10.2) mg/dL Total Bilirubin 0.9 (0.2-1.3) mg/dL AST 136 H (14-36) U/L ALT 91 H (9-52) U/L Alkaline Phosphatase 149 H (38-126) U/L Total Protein 7.8 (6.3-8.2) g/dL Albumin 4.8 (3.5-5.0) g/dL Assessment and Plan (1) Acute abdominal pain in right upper quadrant Narrative/Plan: continue IV antibiotics. Consult Dr. Babb. Check repeat labs including hepatitis panel. CT abdomen and pelvis ordered. HIDA scan pending CAT scan results. Status: Acute
[2017-06-18 11:53] LABS: Basophils % (A) 0 %; CH 29.4; CHCM 33.6; Eosinophils % (A) 0 %; HCT 39.8 % (34.0-46.0); HDW 2.46; HGB 13.3 gm/dL (11.4-16.0); Luc % (Auto) 1; Lymphocytes # (A) 1.8 k/uL (1.0-4.8); Lymphocytes % (A) 13 %; MCH 29.4 pg (25.0-35.0); MCHC 33.4 g/dL (31.0-37.0); MCV 87.9 fL (80.0-100.0); Mean Platelet Volume 6.6; Monocytes # (A) 0.6 k/uL (0-1.0); Monocytes % (A) 5 %; Neutrophils % (A) 81 %; RBC 4.53 m/uL (3.80-5.40); RDW 13.8 % (11.5-15.5); WBC 13.5 k/uL (3.8-10.6); WBC (Perox) 13.53
[2017-06-18] MEDS: IOHEXOL 350 MG/ML 25 ML BOTTLE (ORAL USE) PO PRN ×2 (11:58→13:12)
[2017-06-18 12:09] LABS: ALT 144 U/L (9-52); AST 143 U/L (14-36); Alkaline Phosphatase 123 U/L (38-126); Anion Gap 7 mmol/L; Blood Urea Nitrogen 8 mg/dL (7-17); Calcium 8.6 mg/dL (8.4-10.2); Carbon Dioxide 25 mmol/L (22-30); Chloride 109 mmol/L (98-107); Glucose 82 mg/dL (74-99); Non-African American GFR(MDRD) >60 (>60 ml/min/1.73 sqM); Sodium 141 mmol/L (137-145); Total Bilirubin 1.2 mg/dL (0.2-1.3); Total Protein 6.4 g/dL (6.3-8.2)
[2017-06-18 12:38] LABS: Hepatitis B Surface Ag Index 0.05
[2017-06-18 12:44] LABS: Hepatitis B Core IgM Index 0.02
[2017-06-18 12:55] LABS: Hepatitis C Virus IgG Ab Negative (Negative); Hepatitis C Virus IgG Index 0.02
--- NOTE | 2017-06-18 14:16 | CT ---
EXAMINATION TYPE: CT abdomen pelvis w con DATE OF EXAM: 06/18/2017 COMPARISON: 01/23/2014 HISTORY: Vomiting and RUQ pain. CT DLP: 1481.9 mGycm Automated exposure control for dose reduction was used. TECHNIQUE: Helical acquisition of images was performed from the lung bases through the pelvis. CONTRAST: Performed with Oral Contrast and with IV Contrast, patient injected with 100 mL of Omnipaque 300. FINDINGS: Lung bases are clear. There is no pleural effusion. Liver spleen pancreas appear normal. Bile ducts are not dilated. There is some fluid around the gallb ladder. There is possible gallbladder wall thickening. There is no adrenal mass. Kidneys show normal size and contour. There is satisfactory contrast opacif ication. There is no hydronephrosis. There is no retroperitoneal adenopathy. There is no ascites. The re is linear density in the region of the appendix that could be multiple tiny appendicoliths or surg ical clips. There is no sign of appendicitis. Bladder distends smoothly. There is no evidence of a pelvic mass. I see no intestinal wall thickening . There are no dilated loops. IMPRESSION: THERE IS GALLBLADDER WALL THICKENING AND PROBABLY SOME PERICHOLECYSTIC FLUID SUGGESTIVE OF CHOLECYSTI TIS. THIS APPEARS NEW COMPARED TO OLD CT SCAN.
[2017-06-19] MEDS: ACETAMINOPHEN TAB 325 MG TAB PO PRN (00:07)
[2017-06-19] MEDS: PIPERACILLIN-TAZOBACTAM 3.375 GM in DEXTROSE/WATER 1 50ML.BAG IVPB SCH ×4 (00:09→23:56)
[2017-06-19] MEDS: SODIUM CHLORIDE 0.9% 1,000 ML IV SCH ×4 (02:00→22:22)
[2017-06-19] MEDS: ONDANSETRON 4 MG/2 ML VIAL IVP PRN (08:18)
[2017-06-19] MEDS: FAMOTIDINE 20 MG/2 ML VIAL IV SCH (08:18)
[2017-06-19 08:32] LABS: Basophils % (A) 0 %; CH 28.9; CHCM 33.1; Eosinophils # (A) 0.1 k/uL (0-0.7); Eosinophils % (A) 1 %; HCT 41.1 % (34.0-46.0); HDW 2.47; HGB 13.7 gm/dL (11.4-16.0); Luc # (Auto) 0.13; Luc % (Auto) 1; Lymphocytes # (A) 2.5 k/uL (1.0-4.8); Lymphocytes % (A) 22 %; MCH 29.4 pg (25.0-35.0); MCHC 33.5 g/dL (31.0-37.0); MCV 87.8 fL (80.0-100.0); Monocytes # (A) 0.6 k/uL (0-1.0); Monocytes % (A) 5 %; Neutrophils % (A) 71 %; RBC 4.68 m/uL (3.80-5.40); RDW 13.1 % (11.5-15.5); WBC 11.3 k/uL (3.8-10.6); WBC (Perox) 11.58
[2017-06-19] MEDS: HYDROmorphone 1 MG/ML 1 ML SYRINGE IV PRN (08:53)
[2017-06-19 09:00] LABS: ALT 113 U/L (9-52); AST 60 U/L (14-36); Alkaline Phosphatase 119 U/L (38-126); Amylase 38 U/L (30-110); Anion Gap 10 mmol/L; Blood Urea Nitrogen 5 mg/dL (7-17); Carbon Dioxide 24 mmol/L (22-30); Chloride 108 mmol/L (98-107); Glucose 75 mg/dL (74-99); Non-African American GFR(MDRD) >60 (>60 ml/min/1.73 sqM); Potassium 3.8 mmol/L (3.5-5.1); Sodium 142 mmol/L (137-145); Total Bilirubin 0.7 mg/dL (0.2-1.3); Total Protein 6.8 g/dL (6.3-8.2)
[2017-06-19] MEDS ORDERED: IV FLUID CONTINUATION 1,000 ML IV ONE ×6 (10:20→10:22)
[2017-06-19] MEDS ORDERED: HEPARIN SODIUM,PORCINE 5,000 UNIT/ML 1 ML VIAL SQ ONE (10:42)
--- NOTE | 2017-06-19 10:45 | P.PN ---
Progress Note - Text Patient's CAT scan from yesterday showed thickened gallbladder wall inflammatory changes. Her morning labs show a decrease in white blood cell count and liver enzymes. The patient I discussed the options. Dr. Louis remains out of town. The options of cholecystectomy were reviewed. We decided to proceed with laparoscopic cholecystectomy with possible open cholecystectomy. Risks of bleeding, infection, bile duct injury, biloma formation, retained common bile duct stone, postoperative diarrhea, and conversion to an open procedure were discussed. She understands and wishes to proceed.
[2017-06-19] MEDS ORDERED: LIDOCAINE 1% INJ 10MG/ML (20 ML MDV) ONE (10:52)
[2017-06-19] MEDS ORDERED: MIDAZOLAM 2 MG/2 ML VIAL ONE (10:52)
[2017-06-19] MEDS ORDERED: PROPOFOL 10 MG/ML 20 ML VIAL IV ONE (10:52)
[2017-06-19] MEDS ORDERED: GLYCOPYRROLATE 0.2 MG/ML 2 ML VIAL ONE (10:52)
[2017-06-19] MEDS ORDERED: fentaNYL (PF) 50 MCG/ML 2 ML AMP ONE (10:52)
[2017-06-19] MEDS ORDERED: ROCURONIUM BROMIDE 10 MG/ML 10 ML VIAL IV ONE (10:52)
[2017-06-19] MEDS ORDERED: SUCCINYLCHOLINE CHLORIDE 100 MG/5 ML SYR IV ONE (10:52)
[2017-06-19] MEDS ORDERED: NEOSTIGMINE 1 MG/ML 10 ML VIAL ONE (10:52)
[2017-06-19] MEDS ORDERED: BUPIVACAINE (PF) 0.25% 30 ML VIAL SQ ONE ×2 (11:07)
[2017-06-19] MEDS ORDERED: HYDROcodone/APAP 5-325MG 1 EACH TAB PO PRN (12:17)
--- NOTE | 2017-06-19 12:19 | P.OP ---
Date of Procedure: 06/19/17 Preoperative Diagnosis: Postoperative Diagnosis: Procedure(s) Performed: PREOPERATIVE DIAGNOSIS: Acute cholecystitis POSTOPERATIVE DIAGNOSIS: Acute calculus cholecystitis PROCEDURE: Laparoscopic cholecystectomy SURGEON: Alexander EBL: Minimal see anesthesia record ANESTHESIA: Gen. COMPLICATIONS: None OPERATIVE PROCEDURE: The patient was brought and placed on the operating room table in the supine position. The patient was placed under general anesthesia at that time. The abdomen was prepped and draped in the usual sterile fashion. A small vertical infraumbilical incision was made. The fascia was grasped with the Calderon forceps. The fascia was retracted anteriorly. The Veress needle was advanced into the peritoneal cavity. The saline drop test was normal. Insufflation took place up to 15 mmHg. A 5 mm optical trocar was advanced and the peritoneal cavity. 2 additional 5 mm trochars were placed in the right upper quadrant under direct visualization. A 10 mm trocar was advanced into the epigastric incision site. This was later switched to a 12 mm trocar. The gallbladder was acutely inflamed with edema in the wall. No gangrene was seen. The gallbladder was retracted superiorly and laterally. The peritoneum overlying the infundibulum was bluntly dissected. The patient's cystic duct was visualized. The junction between the cystic duct common and hepatic duct was identified. The cystic duct was then divided after placement of 3 12 mm clips on the patient's side and one on the specimen side. The cystic artery was identified and clipped as well. A small vessel was seen along the gallbladder fossa and clipped as well. The gallbladder was then removed from the liver bed using electrocautery. The gallbladder was then removed from the epigastric trocar site with an Endo Catch bag. The gallbladder fossa was irrigated with saline. There was no evidence of any bleeding or biliary drainage seen. The trochars were then removed. The fascia at the 12 millimeter site was closed using a Chuck Singleton 0 Vicryl stitch. The skin at all 4 sites was closed using a 4-0 Monocryl stitch. The specimen was opened. There were noted be multiple small stones within the gallbladder. At the end of this procedure the sponge and needle counts were correct. DISPOSITION: Stable to the recovery room Implants: Indications for Procedure: Operative Findings: Description of Procedure:
[2017-06-19] MEDS ORDERED: HYDROmorphone 1 MG/ML 1 ML SYRINGE IVP ONE (12:27)
--- NOTE | 2017-06-19 13:59 | P.CONS ---
History of Present Illness - Reason for Consult Consult date: 06/19/17 Medical management of migraine - History of Present Illness This is a 31-year-old white female well-known to me. She complained of right upper quadrant pain for the past several months becoming more frequent. I had seen her outside the office, and she mentioned these complaints. I encouraged her to make a follow-up appointment with return from vacation. Her pain became quite severe to present emergency room for this appointment. He had abnormal liver function tests. CT abdomen and pelvis showed thickened gallbladder consistent with cholecystitis. She is admitted to Dr. Maurilio Munoz for possible cholecystectomy. Currently, pain is controlled. She is nothing by mouth for possible surgery. She currently denies any headache. Review of Systems All systems: negative Past Medical History Past Medical History: Sleep Apnea/CPAP/BIPAP, Thyroid Disorder Additional Past Medical History / Comment(s): Insulin Resistance, depression, anxiety History of Any Multi-Drug Resistant Organisms: None Reported Past Surgical History: Appendectomy Additional Past Surgical History / Comment(s): D&C, third molar removal Additional Past Anesthesia/Blood Transfusion Reaction / Comm: "Hard time waking up" Past Psychological History: Anxiety, Depression Additional Psychological History / Comment(s): not diagnosed with PTSD but does have nightmare Smoking Status: Never smoker Past Alcohol Use History: None Reported Past Drug Use History: None Reported - Past Family History Mother Additional Family Medical History / Comment(s): schizophrenia Medications and Allergies Home Medications Medication Instructions Recorded Confirmed Type ALPRAZolam [Xanax] 0.25 mg PO Q8HR PRN 08/29/15 06/18/17 History Eletriptan [Relpax] 40 mg PO DAILY PRN 08/29/15 06/18/17 History Vortioxetine Hydrobromide 20 mg PO DAILY 06/18/17 06/18/17 History [Trintellix] Allergies Allergy/AdvReac Type Severity Reaction Status Date / Time horse radish Allergy Anaphylaxis Uncoded 06/19/17 08:46 olives Allergy Rash/Hives Uncoded 06/19/17 08:46 Physical Exam Vitals: Vital Signs Temp Pulse Pulse Pulse Resp BP Pulse Ox 06/19/17 13:12 97.4 F L 75 18 114/74 95 06/19/17 12:44 72 16 105/66 100 06/19/17 12:30 67 18 103/67 95 06/19/17 12:15 71 18 109/69 100 06/19/17 11:58 97.2 F L 71 18 108/66 95 06/19/17 10:23 98.7 F 73 16 117/79 97 06/19/17 09:54 97.7 F 80 20 113/77 96 06/19/17 08:00 98.4 F 89 18 118/76 93 L 06/19/17 00:00 97.5 F L 82 18 103/69 97 06/18/17 20:20 80 80 20 06/18/17 19:50 97.7 F 80 20 106/59 95 06/18/17 17:27 98.1 F 91 20 120/70 95 Intake and Output 06/18/17 06/19/17 06/19/17 22:59 06:59 14:59 Intake Total 1590 Output Total 5 Balance 1585 Intake: IV 1590 Output: Estimated Blood Loss 5 Other: Voiding Method Toilet GENERAL: well-nourished and in mild distress From abdominal pain. HEAD: Atraumatic, normocephalic. EYES: Pupils equal round and reactive to light, extraocular movements intact, sclera anicteric, conjunctiva are normal. ENT:nares patent, oropharynx clear without exudates. Moist mucous membranes. NECK: Normal range of motion, supple without lymphadenopathy or JVD, no thyromegaly LUNGS: Breath sounds clear to auscultation bilaterally and equal. No wheezes rales or rhonchi. HEART: Regular rate and rhythm without murmurs, rubs or gallops.S1S2 Normal ABDOMEN: Soft, normoactive bowel sounds. No guarding, no rebound. No masses appreciated. EXTREMITIES: Normal range of motion, no pitting or edema. No clubbing or cyanosis. NEUROLOGICAL: Cranial nerves II through XII grossly intact. Normal speech, normal gait. PSYCH: Normal mood, normal affect. SKIN: Warm, Dry, normal turgor, no rashes or lesions noted. Results CBC & Chem 7: 06/19/17 08:09 06/19/17 08:09 Labs: Abnormal Lab Results - Last 24 Hours (Table) 06/19/17 06/19/17 Range/Units 08:09 08:09 WBC 11.3 H (3.8-10.6) k/uL Neutrophils # 8.0 H (1.3-7.7) k/uL Chloride 108 H (98-107) mmol/L BUN 5 L (7-17) mg/dL AST 60 H (14-36) U/L ALT 113 H (9-52) U/L Microbiology - Last 24 Hours (Table) 06/17/17 22:23 Blood Culture - Preliminary Blood No Growth after [address] scan - abdomen: report reviewed Assessment and Plan Plan: Acute cholecystitis: We'll await general surgery's plans. Most likely she'll Undergo aLaparoscopic cholecystectomy soon Depression: We will hold her Trintellix today. Migraine headache: She can have Relpax when necessary which she is tolerating a diet. Thank you very much for allowing edematous. Airam's care, will follow up with her last 24 hours, or outpatient.
[2017-06-19] MEDS: KETOROLAC 30 MG/ML 1 ML VIAL IVP SCH ×2 (14:31→20:42)
[2017-06-19] MEDS ORDERED: KETOROLAC 30 MG/ML 1 ML VIAL IVP SCH (18:00)
[2017-06-20 00:35] VITALS: RESP 18
[2017-06-20] MEDS: KETOROLAC 30 MG/ML 1 ML VIAL IVP SCH ×3 (02:31→14:59)
[2017-06-20] MEDS: FAMOTIDINE 20 MG/2 ML VIAL IV SCH (08:34)
[2017-06-20] MEDS: PIPERACILLIN-TAZOBACTAM 3.375 GM in DEXTROSE/WATER 1 50ML.BAG IVPB SCH (08:34)
[2017-06-20] MEDS: SODIUM CHLORIDE 0.9% 1,000 ML IV SCH (08:45)
[2017-06-20 08:53] VITALS: BP 115/74; PULSE 75; TEMP 98.6
[2017-06-20] MEDS ORDERED: SUMAtriptan SUCCINATE 50 MG TAB PO PRN (09:34)
[2017-06-20] MEDS ORDERED: ALPRAZolam 0.25 MG TAB PO PRN (09:34)
--- NOTE | 2017-06-20 09:35 | P.PN ---
Subjective This is a 31-year-old white female well-known to me. She complained of right upper quadrant pain for the past several months becoming more frequent. I had seen her outside the office, and she mentioned these complaints. I encouraged her to make a follow-up appointment with return from vacation. Her pain became quite severe to present emergency room for this appointment. He had abnormal liver function tests. CT abdomen and pelvis showed thickened gallbladder consistent with cholecystitis. She is admitted to Dr. Maurilio Munoz for possible cholecystectomy. Currently, pain is controlled. She is nothing by mouth for possible surgery. She currently denies any headache. 06/20/2017 overnight she is s/p Lap deandre pod #1. she has minimal pain controlled with Toradol. + bm today. denies nausea or emesis. Objective - Vital Signs Vital signs: Vital Signs Temp 98.6 F 06/20/17 08:00 Pulse 75 06/20/17 08:00 Resp 18 06/20/17 08:00 BP 115/74 06/20/17 08:00 Pulse Ox 95 06/20/17 08:00 Intake & Output 06/19/17 06/20/17 06/20/17 18:59 06:59 18:59 Intake Total 1590 720 Output Total 5 Balance 1585 720 Intake: IV 1590 Oral 720 Output: Estimated Blood Loss 5 Other: Voiding Method Toilet # Voids 1 - Exam GENERAL: well-nourished and in no distress NECK: Normal range of motion, supple without lymphadenopathy or JVD, no thyromegaly LUNGS: Breath sounds clear to auscultation bilaterally and equal. No wheezes rales or rhonchi. HEART: Regular rate and rhythm without murmurs, rubs or gallops.S1S2 Normal ABDOMEN: Soft, normoactive bowel sounds. Further exam was deferred due to recent surgery EXTREMITIES: Normal range of motion, no pitting or edema. No clubbing or cyanosis. NEUROLOGICAL: Cranial nerves II through XII grossly intact. Normal speech, normal gait. PSYCH: Normal mood, normal affect. SKIN: Warm, Dry, normal turgor, no rashes or lesions noted. - Labs CBC & Chem 7: 06/19/17 08:09 06/19/17 08:09 Labs: Microbiology - Last 24 Hours (Table) 06/17/17 22:23 Blood Culture - Preliminary Blood No Growth after 48 hours Assessment and Plan Plan: Acute cholecystitis: Status post laparoscopic cholecystectomy, POD #[address] Maurilio Munoz. Likely will be discharged today. Depression: Restart her Trintellix Migraine headache: She can have Relpax when necessary She is cleared for discharge medically, we'll have her follow-up in the office in 1-2 weeks
[2017-06-20] MEDS ORDERED: NON-FORMULARY DRUG (Vortioxetine Hydrobromide [Trintellix] 20 MG) PO SCH (09:45)
--- NOTE | 2017-06-20 16:54 | P.DS ---
Providers Date of admission: 06/18/17 01:05 Expected date of discharge: 06/20/17 Attending physician: Musa Louis Consults: 06/18/17 10:01 Consult Physician Routine Consulting Provider: Humble Babb Consult Reason/Comments: Medical management Do you want consulting provider notified?: Yes Primary care physician: Humble Babb - Discharge Diagnosis(es) (1) Acute abdominal pain in right upper quadrant Patient was admitted with acute cholecystitis. She had a ultrasound and CAT scan performed. Yesterday she underwent cholecystectomy laparoscopically. Today she is doing well with minimal discomfort. Her incisions are clean and dry with minimal tenderness. She'll be discharged at this point with plans for outpatient follow-up. Incidentally she did present with a sepsis pattern and was treated appropriately with antibiotics. Her lactic acid and leukocytosis resolved during this hospitalization. Current Visit: Yes Status: Acute Patient Condition at Discharge: Stable Plan - Discharge Summary New Discharge Prescriptions: New Hydrocodone/Acetaminophen [[place] 5-325] 1 - 2 each PO Q4HR PRN #20 tab PRN Reason: pain No Action ALPRAZolam [Xanax] 0.25 mg PO Q8HR PRN PRN Reason: anxiety Eletriptan [Relpax] 40 mg PO DAILY PRN PRN Reason: migraines Vortioxetine Hydrobromide [Trintellix] 20 mg PO DAILY Discharge Medication List ALPRAZolam [Xanax] 0.25 mg PO Q8HR PRN 08/29/15 [History] Eletriptan [Relpax] 40 mg PO DAILY PRN 08/29/15 [History] Vortioxetine Hydrobromide [Trintellix] 20 mg PO DAILY 06/18/17 [History] Hydrocodone/Acetaminophen [[place] 5-325] 1 - 2 each PO Q4HR PRN #20 tab 06/19/17 [Rx] Follow up Appointment(s)/Referral(s): Enrique Munoz MD [Medical Doctor] - 2 Weeks Humble Babb MD [Primary Care Provider] - 1-2 days Activity/Diet/Wound Care/Special Instructions: May shower tonight. No lifting for 2 weeks. you may return to work Monday06/26/17. please report any pain that is not relieved with pain medication, drainage or foul smell from incisions, fever, or chills to Dr Munoz.
[2017-06-21] MEDS ORDERED: FAMOTIDINE 20 MG TAB PO SCH (09:00)
== END 2017-06-20 17:00 | disposition home or self-care (01) | DRG 854 ==
LOC: EC 21:01 → 6PED 06-18 01:05
PROVIDERS: ADMIT Surgery; ATTEND Surgery
PROC: 0FT44ZZ Resection of Gallbladder, Percutaneous Endoscopic Approach (ICD-10-PCS; principal; 2017-06-19 11:50)
DX: A41.9 Sepsis, unspecified organism (principal); K81.0 Acute cholecystitis; E88.81 Metabolic syndrome and other insulin resistance; K76.0 Fatty (change of) liver, not elsewhere classified; F32.9 Major depressive disorder, single episode, unspecified; F41.9 Anxiety disorder, unspecified; G43.909 Migraine, unspecified, not intractable, without status migrainosus; G47.30 Sleep apnea, unspecified; E07.9 Disorder of thyroid, unspecified; Z79.84 Long term (current) use of oral hypoglycemic drugs; Z79.899 Other long term (current) drug therapy
CPT/HCPCS: 36415; 71010; 74000; 74177; 76705; 80053; 80074; 81001; 81025; 82150; 83036; 83605; 83690; 85025; 85610; 85730; 87040; 88304; 96361; 96365; 96366; 96375; 99285

== ENCOUNTER → 2017-07-25 | Outpatient (CLI) | payer MEDICAID ==
[2017-07-25 08:15] LABS: Basophils % (A) 0 %; CH 29.9; Eosinophils % (A) 0 %; HCT 44.6 % (34.0-46.0); HDW 2.54; HGB 14.9 gm/dL (11.4-16.0); Luc # (Auto) 0.17; Luc % (Auto) 2; Lymphocytes # (A) 3.4 k/uL (1.0-4.8); Lymphocytes % (A) 37 %; MCH 29.5 pg (25.0-35.0); MCHC 33.4 g/dL (31.0-37.0); MCV 88.4 fL (80.0-100.0); Mean Platelet Volume 6.7; Monocytes # (A) 0.5 k/uL (0-1.0); Monocytes % (A) 5 %; Neutrophils % (A) 55 %; RBC 5.04 m/uL (3.80-5.40); RDW 14.3 % (11.5-15.5); WBC 9.1 k/uL (3.8-10.6); WBC (Perox) 9.02
[2017-07-25 08:48] LABS: ALT 65 U/L (9-52); AST 41 U/L (14-36); Alkaline Phosphatase 101 U/L (38-126); Anion Gap 12 mmol/L; Blood Urea Nitrogen 12 mg/dL (7-17); Calcium 9.8 mg/dL (8.4-10.2); Carbon Dioxide 27 mmol/L (22-30); Chloride 104 mmol/L (98-107); Cholesterol 208 mg/dL (<200); Glucose 82 mg/dL (74-99); HDL Cholesterol 46 mg/dL (40-60); Non-African American GFR(MDRD) >60 (>60 ml/min/1.73 sqM); Sodium 143 mmol/L (137-145); Total Bilirubin 0.5 mg/dL (0.2-1.3); Total Protein 7.9 g/dL (6.3-8.2)
== END | disposition home or self-care (01) ==
LOC: LABWHC1 07:55
PROVIDERS: ATTEND Family Medicine
DX: Z00.01 Encounter for general adult medical examination with abnormal findings (principal); F41.1 Generalized anxiety disorder; F32.9 Major depressive disorder, single episode, unspecified
CPT/HCPCS: 36415; 80053; 80061; 84439; 84443; 85025

== ENCOUNTER → 2017-10-12 | Outpatient (CLI) | payer MEDICAID ==
--- NOTE | 2017-10-12 19:56 | PN ---
PROGRESS NOTE DATE OF SERVICE: 10/12/2017 31-year-old lady who has been followed in Sleep Center for treatment of obstructive sleep apnea-hypopnea syndrome. Patient successfully continued to use her CPAP equipment using it every night for the whole night without problem related to the pressure, mask or humidity. CPAP pressure in the machine is 5 cm of water. [place] Sleepiness Scale today is 6. The patient decreased her weight from 221 pounds during the previous visit to 208 pounds today. MEDICATIONS: Xanax, trazodone, Adipex, Trintellix. PHYSICAL EXAM: GENERAL Patient in no distress. VITAL SIGNS BP 111/85, HR about 100, RR 16, height 5 feet 7 inches, weight 208, BMI 36.8. Neck 14 inches in circumference. Temperature 97.7, oxygen saturation on room 98%. HEENT PERRLA, EOMI, evaluation of oropharynx showed low position of soft palate. NECK Supple, no JVD. Thyroid is not palpable. LUNGS Clear to percussion and to auscultation. Good air exchange. No wheezing or rhonchi. HEART S1, S2 regular. No murmurs, gallops, or rubs. ABDOMEN Slightly obese. Soft and nontender. Bowel sounds are present. No organomegaly appreciated. EXTREMITIES No clubbing or cyanosis. DAIRY PROCESSING SUPERVISOR Awake, alert, and oriented X3. Cranial nerves 2 to 7 intact. There is no fasciculation or atrophy. noted. No focal deficits observed. IMPRESSION: 1. Obstructive sleep apnea-hypopnea syndrome. Patient demonstrated good compliance with treatment, benefitting from treatment. 2. Obesity, patient lost 13 pounds since previous visit. 3. Hypothyroidism. 4. History of resistance to insulin. 5. Depression. 6. Anxiety. 7. 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 PLAN: 1. Continue treatment with CPAP every night with the same pressure. 2. Continue losing weight. 3. Sleep hygiene with regular time bed for at least 8 hours. 4. No driving if feeling sleepiness. 5. Prescription for all necessary CPAP supplies including mask, tube, filters. Thank you very much for allowing me to participate in management of your patient. Sincerely, Bryan Crabtree MD, PhD, FAASM Diplomat of [employer] Account Receivable Clerk of [facility] [place] MMODL / IJN: [id number] /
== END | disposition home or self-care (01) ==
LOC: SLEEP 16:29
PROVIDERS: ATTEND Internal Medicine
DX: G47.33 Obstructive sleep apnea (adult) (pediatric) (principal); E03.9 Hypothyroidism, unspecified; F32.9 Major depressive disorder, single episode, unspecified; F41.9 Anxiety disorder, unspecified; E66.9 Obesity, unspecified; Z68.36 Body mass index [BMI] 36.0-36.9, adult; Z79.899 Other long term (current) drug therapy

== ENCOUNTER → 2018-10-11 | Outpatient (CLI) | payer MEDICAID ==
--- NOTE | 2018-10-11 11:19 | SFUN ---
SLEEP CENTER FOLLOW UP NOTE DATE OF SERVICE: 10/11/2018 A 32-year-old lady who has been followed in the Sleep Center for treatment of obstructive sleep apnea-hypopnea syndrome. Patient successfully continued to use her CPAP equipment every night for the whole night. I checked her CPAP unit. Usage is 100% more than 4 hours. Average usage is 9 hours 26 minutes. [place] Sleepiness Scale is 4. Patient significantly increased her weight since previous visit from 208 pounds to 245 pounds. I reviewed results of her previous sleep studies. CPAP titration done in 2013. At that time, her weight was 205 pounds. Subsequently, she increased her weight 40 pounds since titration. Her machine is old and does not demonstrate any information about her breathing during the sleep, only has information about her compliance. MEDICATIONS: Xanax, Trazodone, Trintellix. PHYSICAL EXAM: Patient in no distress, BP 112/66, HR 82, RR 16, height 5. 3 weight 245. Body mass index 43.3, temperature 98.3, oxygen saturation room air 97%. OROPHARYNX: Low position of soft palate. ABDOMEN: Obese. Neck Supple, no JVD. Thyroid is not palpable. LUNGS Clear to percussion and to auscultation. Good air exchange. No wheezing or rhonchi. HEART S1, S2 regular. No murmurs, gallops, or rubs. EXTREMITIES No clubbing or cyanosis. SCIENTIFIC DIVER Awake, alert, and oriented X3. Cranial nerves 2 to 7 intact. There is no fasciculation or atrophy. noted. No focal deficits observed. IMPRESSION: 1. Obstructive sleep apnea-hypopnea syndrome. Patient demonstrated 100% compliance with treatment. 2. Obesity, body mass index 43.3. Patient increased her weight of 40 pounds since previous CPAP titration. 3. Hypothyroidism. 4. Depression. 5. Anxiety. 6. History of resistance to insulin. 7. 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 PLAN: 1. Will repeat CPAP titration for evaluation of effective CPAP pressure at the present time. 2. Watching and losing weight. 3. After titration, we will provide a prescription for new CPAP equipment. 4. Losing weight. 5. No driving if feeling any sleepiness. Thank you very much for allowing me to participate in the management of your patient. Sincerely. Bryan Crabtree MD, PhD, FAASM Diplomat of [employer] Nursery Manager of [facility] [place] [id number] / SVETLANAN: [id number] /
== END ==
LOC: SLEEP 09:51
PROVIDERS: ATTEND Internal Medicine
DX: G47.33 Obstructive sleep apnea (adult) (pediatric) (principal); E66.9 Obesity, unspecified; E03.9 Hypothyroidism, unspecified; F32.9 Major depressive disorder, single episode, unspecified; F41.9 Anxiety disorder, unspecified; Z88.8 Allergy status to other drugs, medicaments and biological substances; Z99.89 Dependence on other enabling machines and devices; Z79.899 Other long term (current) drug therapy; Z68.41 Body mass index [BMI] 40.0-44.9, adult

== ENCOUNTER → 2019-01-17 | Outpatient (CLI) | payer MEDICAID ==
--- NOTE | 2019-01-17 18:26 | PN ---
PROGRESS NOTE DATE OF SERVICE: 01/17/2019 This patient is a 33-year-old lady who [facility] of obstructive sleep apnea-hypopnea syndrome. Recently the patient had CPAP titration and received a new CPAP unit. Today is her first visit with the new CPAP unit. She is able to use CPAP equipment every night for the whole night without significant problems. She is sleeping well, feels well during the day. I checked her CPAP unit. Range of the pressure is 5 to 12. Patient is using equipment every night. Average usage is 10.5 hours. Pressure in the machine is 11.6 cm of water. Leak is 5 L/minute, which is good. Apnea-hypopnea index for the last month is 5.5, for the last night 8.6. [place] Sleepiness Scale today is 6. MEDICATIONS: 1. Xanax. 2. Trazodone. 3. Trintellix. PHYSICAL EXAMINATION: GENERAL: A pleasant patient in no distress. VITAL SIGNS: BP 135/76, HR 94, RR 16, weight 228.6, temperature 98.8, oxygen saturation at room air 95%. HEENT: PERRLA, EOMI. Evaluation of oropharynx showed tongue protrudes midline. Low position of soft palate. NECK: Supple. No JVD. Thyroid is not palpable. LUNGS: Clear to percussion and to auscultation. Good air exchange. No wheezing or rhonchi. HEART: S1, S2 regular. No murmurs, gallops or rubs. ABDOMEN: Slightly obese. EXTREMITIES: No clubbing or cyanosis. OPERATIONS CONSULTANT: Awake, alert, and oriented X3. Cranial nerves 2 to 7 intact. There is no fasciculation or atrophy. noted. No focal deficits observed. IMPRESSION: 1. Obstructive sleep apnea-hypopnea syndrome, 100% compliance with treatment. Patient is benefitting from treatment. 2. Obesity. 3. Hypothyroidism. 4. Depression. 5. Anxiety. 6. History of insulin resistance. PLAN: 1. I will increase the range of pressure up to 14 cm of water. 2. Patient will continue to use CPAP equipment every night for the whole night. 3. Losing weight. 4. Sleep hygiene with regular time in bed for at least 8 hours. 5. No driving if feeling any sleepiness. Thank you very much for allowing me to participate in the management of your patient. Sincerely, Bryan Crabtree MD, PhD, FAASM Diplomat of [employer] Lens Grinding Machine Operator of [facility] [place] MMKIN / ISHAN: [id number] /
== END ==
LOC: SLEEP 16:09
PROVIDERS: ATTEND Internal Medicine
DX: G47.33 Obstructive sleep apnea (adult) (pediatric) (principal); E66.9 Obesity, unspecified; E03.9 Hypothyroidism, unspecified; F32.9 Major depressive disorder, single episode, unspecified; F41.9 Anxiety disorder, unspecified; Z88.8 Allergy status to other drugs, medicaments and biological substances; Z79.899 Other long term (current) drug therapy; Z99.89 Dependence on other enabling machines and devices

== ENCOUNTER → 2019-04-30 | Outpatient (CLI) | payer MEDICAID ==
--- NOTE | 2019-04-30 11:45 | XR ---
EXAMINATION TYPE: XR cervical spine comp DATE OF EXAM: 04/30/2019 COMPARISON: NONE HISTORY: Pain TECHNIQUE: Four views are submitted. FINDINGS: The odontoid is intact. There are no compression deformities. The prevertebral soft tissue structur es are within normal limits. Posterior spondylosis C5-C6. IMPRESSION: 1. Posterior spondylosis degenerative disc disease C5-C6. Recommend MRI follow-up to assess for canal stenosis..
== END | disposition home or self-care (01) ==
LOC: RADXRMAIN 10:52
PROVIDERS: ATTEND Family Medicine
DX: M50.123 Cervical disc disorder at C6-C7 level with radiculopathy (principal); M47.22 Other spondylosis with radiculopathy, cervical region
CPT/HCPCS: 72050

== ENCOUNTER → 2019-05-20 | Outpatient (CLI) | payer MEDICAID ==
--- NOTE | 2019-05-20 16:12 | MR ---
EXAMINATION TYPE: MR cervical spine wo con DATE OF EXAM: 05/20/2019 COMPARISON: X-ray 04/30/2019 HISTORY: Cervicalgia /Radiculopathy, cervical TECHNIQUE: Multiplanar, multisequence images of the cervical spine were acquired. C2-C3: No evidence for degenerative disc disease. No disc bulge/herniation or protrusion. No Canal stenosis. Foramina are patent bilaterally. C3-C4: No evidence for degenerative disc disease. No disc bulge/herniation or protrusion. No Canal stenosis. Foramina are patent bilaterally. C4-C5: No evidence for degenerative disc disease. No disc bulge/herniation or protrusion. No Canal stenosis. Foramina are patent bilaterally. C5-C6: There is a broad-based central disc herniation with moderate effacement of thecal sac. Disc ab uts the anterior margin of the spinal cord. Neural foramina remain patent. Mild uncovertebral joint h ypertrophy noted. There is degenerative disc disease. Finding results in central canal stenosis. C6-C7: Broad-based left paracentral disc herniation with mild left-sided foraminal encroachment. No s mariaa cord contact. Mild effacement of thecal sac. Right neural foramina widely patent. Degenerative disc disease noted. C7-T1: No evidence for degenerative disc disease. No disc bulge/herniation or protrusion. No Canal stenosis. Foramina are patent bilaterally. Cervical segments are intact. There is normal alignment. Cervical spinal cord is of normal signal. Craniovertebral junction relationships are within normal limits. IMPRESSION: 1. Broad-based central disc herniation with moderate effacement of thecal sac and central stenosis C5 -C6 which abuts the anterior margin of the spinal cord. 2. Left paracentral disc herniation with mild left-sided foraminal encroachment C6-C7.
== END | disposition home or self-care (01) ==
LOC: RADMRIMAIN 15:27
PROVIDERS: ATTEND Nurse Practitioner Family
DX: M48.02 Spinal stenosis, cervical region (principal); M50.122 Cervical disc disorder at C5-C6 level with radiculopathy
CPT/HCPCS: 72141

== ENCOUNTER → 2019-07-18 | Outpatient (CLI) | payer MEDICAID ==
--- NOTE | 2019-07-18 19:39 | PN ---
PROGRESS NOTE DATE OF SERVICE: 07/18/2019 This patient is a 33-year-old lady who has been [facility] for treatment of obstructive sleep apnea-hypopnea syndrome. During her previous visit in January of 2019, apnea-hypopnea index reading from the machine on the last night was 8.6. Subsequently I slightly increased pressure in her CPAP unit to the maximal level of 14 cm of water. The patient is able to continue to use her CPAP equipment every night for the whole night. No problem with the mask, pressure or humidification. No snoring with the machine. [place] Sleepiness Scale today is 4, which is normal. I checked her CPAP unit. Range of the pressure is 5 to 14. Average pressure is 12 cm of water. Usage is 30/30 nights for more than 4 hours with average usage 9.2 hours per night, which is perfect. Leak is 0 L/minute. Apnea-hypopnea index for the last month is 4.5, which is in normal range. MEDICATIONS: 1. Xanax. 2. Trazodone. 3. Trintellix. PHYSICAL EXAMINATION: GENERAL: A pleasant patient in no distress. VITAL SIGNS: BP 124/83, HR 100, RR 16, height 5 feet 3 inches, weight 217, which is 11 pounds less than during the previous visit. Body mass index 38.4, temperature 98.1, oxygen saturation at room air 97%. HEENT: PERRLA, EOMI. Evaluation of oropharynx showed tongue protrudes midline. Extremely low position of soft palate. Mallampati IV. NECK: Supple. No JVD. Thyroid is not palpable. LUNGS: Clear to percussion and to auscultation. Good air exchange. No wheezing or rhonchi. HEART: S1, S2 regular. No murmurs, gallops or rubs. ABDOMEN: Slightly obese. EXTREMITIES: No clubbing or cyanosis. STRUCTURAL STEEL SHOP SUPERVISOR: Awake, alert, and oriented X3. Cranial nerves 2 to 7 intact. There is no fasciculation or atrophy. noted. No focal deficits observed. IMPRESSION: 1. Obstructive sleep apnea-hypopnea syndrome. Patient demonstrated 100% compliance with treatment, benefitting from treatment, normalization of her breathing while she is on CPAP. 2. Obesity. 3. Hypothyroidism. 4. Depression. 5. Anxiety. 6. History of insulin resistance. PLAN: 1. Patient will continue to use CPAP equipment every night for the whole night. 2. I will maintain all necessary prescriptions for nasal mask, heated tube, filters. 3. Continue losing weight. 4. Sleep hygiene with regular time in bed for at least 8 hours. 5. No driving if feeling any sleepiness. 6. Follow-up visit in one year, or earlier if patient has any problems. Thank you very much for allowing me to participate in the management of your patient. Sincerely, Bryan Crabtree MD, PhD, FAASM Diplomat of [place] [employer] [place] [employer] Solution Design And Analysis Manager of [facility] [place] MMODL / IJN: [id number] /
== END ==
LOC: SLEEP 16:25
PROVIDERS: ATTEND Internal Medicine
DX: G47.33 Obstructive sleep apnea (adult) (pediatric) (principal); E66.9 Obesity, unspecified; E03.9 Hypothyroidism, unspecified; F41.8 Other specified anxiety disorders; Z88.8 Allergy status to other drugs, medicaments and biological substances; Z99.89 Dependence on other enabling machines and devices; Z68.38 Body mass index [BMI] 38.0-38.9, adult; Z79.899 Other long term (current) drug therapy

== ENCOUNTER → 2019-08-17 | Outpatient (CLI) | payer MEDICAID ==
[2019-08-17 10:32] LABS: Basophils # (A) 0.1 k/uL (0-0.2); Basophils % (A) 1 %; Eosinophils # (A) 0.1 k/uL (0-0.7); Eosinophils % (A) 1 %; HCT 43.4 % (34.0-46.0); HGB 14.1 gm/dL (11.4-16.0); Lymphocytes # (A) 2.8 k/uL (1.0-4.8); Lymphocytes % (A) 33 %; MCHC 32.6 g/dL (31.0-37.0); MCV 89.1 fL (80.0-100.0); Mean Platelet Volume 5.9; Monocytes # (A) 0.4 k/uL (0-1.0); Monocytes % (A) 4 %; Neutrophils # (A) 5.2 k/uL (1.3-7.7); Neutrophils % (A) 60 %; Platelet Count 396 k/uL (150-450); RBC 4.87 m/uL (3.80-5.40); RDW 12.9 % (11.5-15.5); WBC 8.7 k/uL (3.8-10.6)
--- NOTE | 2019-08-17 14:47 | XR ---
EXAMINATION TYPE: XR abdomen 1V DATE OF EXAM: 08/17/2019 COMPARISON: 08/11/2011 HISTORY: Abdominal pain TECHNIQUE: Single view supine FINDINGS: There is no sign of intestinal obstruction or pneumoperitoneum. Fecal pattern is normal. Ev ng bases are clear. There are clips from cholecystectomy. IMPRESSION: Nonacute abdomen. No adverse change.
[2019-08-17 16:42] LABS: T4, Free (Free Thyroxine) 0.9 ng/dL (0.80-1.80)
[2019-08-17 16:45] LABS: Vitamin D 25 Hydroxy 14.2 ng/mL (30.0-100.0)
[2019-08-17 18:06] LABS: African American GFR (CKD) 130.1 (60.0-200.0); Albumin 4.4 g/dL (3.80-4.90); Albumin/Globulin Ratio 2.1 (1.60-3.17); Anion Gap 10.4 mmol/L (4.00-12.00); BUN/Creat Ratio 17.14 Ratio (12.00-20.00); Calcium 9.5 mg/dL (8.7-10.3); Carbon Dioxide 24.6 mmol/L (21.6-31.8); Chol/HDL Ratio 4.7; Globulin 2.1 g/dL (1.6-3.3); LDL Cholesterol,Calculated 105.8 mg/dL (0.0-131.0); Potassium 4.2 mmol/L (3.5-5.5); Total Bilirubin 0.4 mg/dL (0.3-1.2); Total Protein 6.5 g/dL (6.2-8.2); VLDL Calculation 53.2 mg/dL (5.00-40.00)
== END | disposition home or self-care (01) ==
LOC: LABWHC1 09:46
PROVIDERS: ATTEND Family Medicine
DX: R10.9 Unspecified abdominal pain (principal); Z00.00 Encounter for general adult medical examination without abnormal findings; R19.7 Diarrhea, unspecified; R53.82 Chronic fatigue, unspecified
CPT/HCPCS: 36415; 74018; 80053; 80061; 82150; 82306; 82607; 83690; 84439; 84443; 85025

== ENCOUNTER → 2019-12-13 | Outpatient (CLI) | payer MEDICAID ==
--- NOTE | 2019-12-13 12:57 | NM ---
EXAMINATION TYPE: NM stress cardiolite complete DATE OF EXAM: 12/13/2019 COMPARISON: NONE HISTORY: Chest pain TECHNIQUE: After the intravenous administration of 10.4 mCi Tc 99m Sestamibi - Rest images obtained 45 minutes post injection. The patient exercised using a CHILANGO protocol and 1 minute prior to peak exercise was injected with 25.6 mCi Tc 99m Sestamibi - Stress images obtained 10 minutes post injecti on. FINDINGS: Targeted heart rate was achieved during performance of the study. Review of stress and rest SPECT violet ges demonstrates no distinct perfusion abnormality. Gated analysis shows normal wall motion with an estimated left ventricular ejection fraction of 74 %. IMPRESSION: No scintigraphic evidence for reversible ischemia. Consider echocardiographic correlation for elevate d ejection fraction
--- NOTE | 2019-12-13 13:00 | ECHOF ---
Referral Reason:R07.89 chest pain MEASUREMENTS -------- HEIGHT: 160.0 cm WEIGHT: 99.8 kg BP: RVIDd: 3.6 cm (< 3.3) IVSd: 1.2 cm (0.6 - 1.1) LVIDd: 3.0 cm (3.9 - 5.3) LVPWd: 1.2 cm (0.6 - 1.1) IVSs: 1.5 cm LVIDs: 2.2 cm LVPWs: 1.5 cm LAESV Index (A-L): 19.91 ml/m Ao Diam: 2.7 cm (2.0 - 3.7) AV Cusp: 2.0 cm (1.5 - 2.6) LA Diam: 3.6 cm (2.7 - 3.8) MV EXCURSION: 16.703 mm (> 18.000) MV EF SLOPE: 114 mm/s (70 - 150) EPSS: 0.4 cm MV E Jv: 0.53 m/s MV DecT: 101 ms MV A Jv: 0.66 m/s MV E/A Ratio: 0.81 RAP: 5.00 mmHg RVSP: 19.26 mmHg FINDINGS -------- Sinus rhythm. This was a technically adequate study. The left ventricular size is normal. There is borderline concentric left ventricular hypertrophy. Overall left ventricular systolic function is normal with, an EF between 55 - 60 %. The diastolic filling pattern is normal for the age of the patient 6.88. The right ventricle is normal in size. Normal LA size by volume 22+/-6 ml/m2. The right atrial size is normal. Interatrial and interventricular septum intact. The aortic valve is trileaflet and appears structurally normal. There is no evidence of aortic regu rgitation. There is no evidence of aortic stenosis. No mitral regurgitation. Mild tricuspid regurgitation present. There is no evidence of pulmonary hypertension. The right v entricular systolic pressure, as measured by Doppler, is 19.26mmHg. There is no pulmonic regurgitation present. The aortic root size is normal. IVC Not well visulized. There is no pericardial effusion. CONCLUSIONS -------- 1. Sinus rhythm. 2. This was a technically adequate study. 3. The left ventricular size is normal. 4. There is borderline concentric left ventricular hypertrophy. 5. Overall left ventricular systolic function is normal with, an EF between 55 - 60 %. 6. The diastolic filling pattern is normal for the age of the patient 6.88 7. The right ventricle is normal in size. 8. Normal LA size by volume 22+/-6 ml/m2. 9. The right atrial size is normal. 10. Interatrial and interventricular septum intact. 11. The aortic valve is trileaflet and appears structurally normal. 12. There is no evidence of aortic regurgitation. 13. There is no evidence of aortic stenosis. 14. No mitral regurgitation. 15. Mild tricuspid regurgitation present. 16. There is no evidence of pulmonary hypertension. 17. The right ventricular systolic pressure, as measured by Doppler, is 19.26mmHg. 18. There is no pulmonic regurgitation present. 19. The aortic root size is normal. 20. IVC Not well visulized. 21. There is no pericardial effusion. SITE SAFETY REPRESENTATIVE: Xochitl Zelaya RDCS
--- NOTE | 2019-12-13 13:18 | P.STRESS ---
- Stress Test Note Stress Test Results/Findings: Exam Performed: NM stress cardiolite complete Exam Date: 12/13/19 Reason for Exam: CHEST PAIN Height: 5 ft 3 in Weight: 220 kg Protocol: CARDIOLITE CHILANGO Stage: II Duration of Exercise: 6:00 Resting Heart Rate: 101 Resting Blood Pressure: 117/85 Maximum Achieved Heart Rate: 158 Maximum Achieved Blood Pressure: 146/85 85% PMHR: 152 100% PMHR: 185 METS: 7.3 Technologist Comment: Stress Test Results/Findings: This is a 33-year-old female with history of chest pain and shortness of breath, being evaluated for cardiac status. Stress data: Baseline EKG showed a sinus rhythm with normal HI interval, QRS duration. Blood pressure at rest is 117/85 with pulse rate of 101. Patient walked on the [place] protocol for 6 minutes achieving a maximum rate of 158 with a blood pressure 146/85. EKGs taken during and after exercise did not reveal any significant changes from the baseline. Final impression #1. Negative stress test #2 patient complained of some chest soreness which appeared to be typical. #3. No arrhythmias detected #4. Patient's exercise capacity is average
--- NOTE | 2019-12-13 13:51 | EST ---
Stress Test Results/Findings: Exam Performed: NM stress cardiolite complete Exam Date: 12/13/19 Reason for Exam: CHEST PAIN Height: 5 ft 3 in Weight: 220 kg Protocol: CARDIOLITE CHILANGO Stage: II Duration of Exercise: 6:00 Resting Heart Rate: 101 Resting Blood Pressure: 117/85 Maximum Achieved Heart Rate: 158 Maximum Achieved Blood Pressure: 146/85 85% PMHR: 152 100% PMHR: 185 METS: 7.3 Technologist Comment: Stress Test Results/Findings: This is a 33-year-old female with history of chest pain and shortness of breath, being evaluated for cardiac status. Stress data: Baseline EKG showed a sinus rhythm with normal [place] interval, QRS duration. Blood pressure at rest is 117/85 with pulse rate of 101. Patient walked on the [place] protocol for 6 minutes achieving a maximum rate of 158 with a blood pressure 146/85. EKGs taken during and after exercise did not reveal any significant changes from the baseline. Final impression #1. Negative stress test #2 patient complained of some chest soreness which appeared to be typical. #3. No arrhythmias detected #4. Patient's exercise capacity is average MTDD
== END | disposition home or self-care (01) ==
LOC: RADNMMAIN 07:52
PROVIDERS: ATTEND Family Medicine
DX: I07.1 Rheumatic tricuspid insufficiency (principal); I20.9 Angina pectoris, unspecified
CPT/HCPCS: 93017; 93306; 78452; A9500

== ENCOUNTER → 2020-01-20 | Outpatient (CLI) | payer MEDICAID ==
--- NOTE | 2020-01-20 16:28 | XR ---
Left RIBS HISTORY: Chest pain, angina pectoris 4 views of the left ribs Bone mineralization is maintained. There is no evident displaced rib fracture. No pneumothorax or lef t pleural effusion is identified. IMPRESSION: No evident abnormality. Bone scan could be performed for increased sensitivity as indicat ed.
== END | disposition home or self-care (01) ==
LOC: RADXRMAIN 15:50
PROVIDERS: ATTEND Family Medicine
DX: I20.9 Angina pectoris, unspecified (principal); R07.89 Other chest pain

== ENCOUNTER → 2020-02-07 | Outpatient (CLI) | payer MEDICAID ==
[2020-02-07 09:39] LABS: Basophils % (A) 0 %; Eosinophils # (A) 0.1 k/uL (0-0.7); Eosinophils % (A) 1 %; HCT 42.1 % (34.0-46.0); HGB 14.3 gm/dL (11.4-16.0); Lymphocytes # (A) 2.9 k/uL (1.0-4.8); Lymphocytes % (A) 29 %; MCH 29.1 pg (25.0-35.0); MCHC 33.8 g/dL (31.0-37.0); Mean Platelet Volume 6.4; Monocytes # (A) 0.4 k/uL (0-1.0); Monocytes % (A) 4 %; Neutrophils # (A) 6.5 k/uL (1.3-7.7); Neutrophils % (A) 65 %; Platelet Count 446 k/uL (150-450); RDW 12.5 % (11.5-15.5)
[2020-02-07 16:27] LABS: African American GFR (CKD) 109.9 (60.0-200.0); Anion Gap 9.2 mmol/L (4.00-12.00); BUN/Creat Ratio 17.5 Ratio (12.00-20.00); Calcium 9.8 mg/dL (8.7-10.3); Carbon Dioxide 26.8 mmol/L (21.6-31.8); Non-African American GFR(CKD) 94.8 (60.0-200.0); Potassium 4.4 mmol/L (3.5-5.5)
== END | disposition home or self-care (01) ==
LOC: LABWHC1 08:42
PROVIDERS: ATTEND Family Medicine
DX: R07.9 Chest pain, unspecified (principal); F43.21 Adjustment disorder with depressed mood; F41.9 Anxiety disorder, unspecified; I20.9 Angina pectoris, unspecified
CPT/HCPCS: 36415; 80048; 84443; 85025

== ENCOUNTER 2020-05-01 10:58 | Emergency (ER) | payer MEDICAID ==
[2020-05-01] MEDS ORDERED: SODIUM CHLORIDE 0.9% 1,000 ML IV ONE (11:19)
[2020-05-01] MEDS ORDERED: ONDANSETRON 4 MG/2 ML VIAL IVP STA (11:19)
[2020-05-01] MEDS ORDERED: SODIUM CHLORIDE 0.9% 500 ML 500 ML IV ONE (11:19)
[2020-05-01] MEDS ORDERED: SODIUM CHLORIDE 0.9% 1,000 ML IV SCH (11:30)
[2020-05-01 11:53] LABS: Appearance,Urine Clear (Clear); Bilirubin,Urine Negative (Negative); Blood,Urine Negative (Negative); Color,Urine Light Yellow; Glucose,Urine (UA) Negative (Negative); Ketones,Urine Negative (Negative); Leukocyte Esterase,Urine Negative (Negative); Nitrite,Urine Negative (Negative); Protein,Urine Negative (Negative); Specific Gravity,Urine 1.007 (1.001-1.035); Urobilinogen,Urine <2.0 mg/dL (<2.0)
[2020-05-01 11:53] LABS: Basophils % (A) 0 %; Eosinophils # (A) 0.1 k/uL (0-0.7); Eosinophils % (A) 1 %; HGB 14.2 gm/dL (11.4-16.0); Lymphocytes # (A) 3.5 k/uL (1.0-4.8); Lymphocytes % (A) 32 %; MCHC 32.3 g/dL (31.0-37.0); MCV 86.7 fL (80.0-100.0); Mean Platelet Volume 6.3; Monocytes # (A) 0.5 k/uL (0-1.0); Monocytes % (A) 5 %; Neutrophils # (A) 6.6 k/uL (1.3-7.7); Neutrophils % (A) 60 %; Platelet Count 409 k/uL (150-450); RBC 5.07 m/uL (3.80-5.40); RDW 12.8 % (11.5-15.5); WBC 10.9 k/uL (3.8-10.6)
[2020-05-01 12:03] LABS: ALT 44 U/L (4-34); AST 30 U/L (14-36); African American GFR (CKD) >90 (>60 ml/min/1.73 sqM); Albumin 4.3 g/dL (3.5-5.0); Alkaline Phosphatase 97 U/L (38-126); Amylase 50 U/L (30-110); Anion Gap 8 mmol/L; Blood Urea Nitrogen 12 mg/dL (7-17); Calcium 9.6 mg/dL (8.4-10.2); Carbon Dioxide 24 mmol/L (22-30); Chloride 105 mmol/L (98-107); Glucose 85 mg/dL (74-99); Non-African American GFR(CKD) >90 (>60 ml/min/1.73 sqM); Potassium 4.2 mmol/L (3.5-5.1); Sodium 137 mmol/L (137-145); Total Bilirubin 0.4 mg/dL (0.2-1.3); Total Protein 7.4 g/dL (6.3-8.2)
--- NOTE | 2020-05-01 12:36 | CT ---
EXAMINATION TYPE: CT abdomen pelvis w con DATE OF EXAM: 05/01/2020 COMPARISON: June 18, 2017 HISTORY: Abdominal pain, nausea and vomiting CT DLP: 1752.9 mGycm CONTRAST: CT scan of the abdomen and pelvis is performed without Oral Contrast and with IV Contrast, patient in jected with 100 ml mL of Isovue 300. FINDINGS: LUNG BASES-: No visible nodule. No infiltrate. LIVER/GB: The gallbladder is surgically absent. Mild hepatic steatosis. No space occupying hepatic lesion. Biliary tree is of normal caliber. PANCREAS: No inflammation. No distinct mass. SPLEEN: No splenic enlargement. No lesion seen. ADRENALS: No nodule. No thickening. KIDNEYS/BLADDER: No hydronephrosis. No nephrolithiasis. No distinct renal mass. Urinary bladder g rossly unremarkable. BOWEL: The appendix is surgically absent. Mild wall thickening and distention of small bowel . Correl ate for small bowel enteritis. Large bowel is of normal caliber or abscess. Normal bowel caliber. No inflammation. GENITAL ORGANS: No gross abnormality. LYMPH NODES: No greater than 1cm abdominal or pelvic lymph nodes are appreciated. AORTA: No significant abnormality. OSSEOUS STRUCTURES: No significant abnormality is seen. OTHER: No significant additional abnormality is seen. IMPRESSION: 1. Mild wall thickening and distention of small bowel . Correlate for small bowel enteritis.
--- NOTE | 2020-05-01 12:47 | ED ---
Abdominal Pain HPI - General Chief Complaint: Abdominal Pain Stated Complaint: poss bowel obstruction Time Seen by Provider: 05/01/20 11:05 Source: patient Mode of arrival: ambulatory Limitations: no limitations - History of Present Illness Initial Comments: 34yo female history of previous cholecystectomy and appendectomy presenting today for chief complaint of vomiting patient states that she has been vomiting for the past day. Patient states that she has some right mid abdominal pain. Patient denies any diarrhea that is new she states she chronically has loose stools denies constipation. Patient states she initially presented to an urgent care where she had xray and was told to come to ER to r/o obstruction. Patient denies melena hematochezia fever. Patient denies a cough or upper respiratory symptoms. Patient denies chest pain shortness of breath, emesis. Upon arrival patient appears well no signs of acute distress. - Related Data Home Medications Medication Instructions Recorded Confirmed ALPRAZolam [Xanax] 0.25 mg PO Q8HR PRN 08/29/15 06/18/17 Eletriptan [Relpax] 40 mg PO DAILY PRN 08/29/15 06/18/17 Vortioxetine Hydrobromide 20 mg PO DAILY 06/18/17 06/18/17 [Trintellix] Previous Rx's Medication Instructions Recorded Hydrocodone/Acetaminophen [[place] 1 - 2 each PO Q4HR PRN #20 tab 06/19/17 5-325] Ondansetron Odt [Zofran Odt] 4 mg PO Q8HR PRN 3 Days #9 tab 05/01/20 Allergies Allergy/AdvReac Type Severity Reaction Status Date / Time horse radish Allergy Anaphylaxis Uncoded 05/01/20 11:05 olives Allergy Rash/Hives Uncoded 05/01/20 11:05 Review of Systems ROS Statement: Those systems with pertinent positive or pertinent negative responses have been documented in the HPI. ROS Other: All systems not noted in ROS Statement are negative. Past Medical History Past Medical History: Sleep Apnea/CPAP/BIPAP, Thyroid Disorder Additional Past Medical History / Comment(s): depression, anxiety History of Any Multi-Drug Resistant Organisms: None Reported Past Surgical History: Appendectomy, Cholecystectomy Additional Past Surgical History / Comment(s): D&C, third molar removal Additional Past Anesthesia/Blood Transfusion Reaction / Comment(s): "Hard time waking up" Past Psychological History: Anxiety, Depression Smoking Status: Never smoker Past Alcohol Use History: None Reported Past Drug Use History: None Reported - Past Family History Mother Additional Family Medical History / Comment(s): schizophrenia General Exam - General Exam Comments Initial Comments: General: The patient is awake and alert, in no distress Eye: +3 mm pupils are equal, round and reactive to light, extra-ocular movements are intact. No nystagmus. There is normal conjunctiva bilaterally. No signs of icterus. Cardiovascular: There is a regular rate and rhythm. No murmur, rub or gallop is appreciated. Respiratory: Lungs are clear to auscultation, respirations are non-labored, b reath sounds are equal. No wheezes, stridor, rales, or rhonchi. Gastrointestinal: Soft, non-distended, mild right mid abdominal tenderness, there remaining abdomen is nontender and is without masses or organomegaly noted. There is no rebound or guarding present. Musculoskeletal: Normal ROM, no tenderness. Strength 5/5. Sensation intact. Radial pulses equal bilaterally 2+. Neurological: A&O x 3. CN II-XII intact grossly, There are no obvious motor or sensory deficits. Coordination appears grossly intact. Speech is normal. Skin: Skin is warm and dry and no rashes or lesions are noted. Psychiatric: Cooperative, appropriate mood & affect, normal judgment. Limitations: no limitations Course Vital Signs 05/01/20 05/01/20 11:00 12:41 Temperature 98.1 F Pulse Rate 96 79 Respiratory 18 18 Rate Blood Pressure 115/85 114/78 O2 Sat by Pulse 96 98 Oximetry Medical Decision Making - Medical Decision Making Hydrated, well- appearing 34yo female presenting for vomiting, abdominal pain.Sent over to r/o obstruction CT reveals findings most consistent with enteritis, no obstruction. Patient passing stool per rectum. Patient labsstable mild leukocytosis. Symptoms controlled in the ER. Patient appears well, comforta ble. Patient discharge appearing well with return parameters for persistent symptoms, inability to tolerate oral intake, or increasing pain. Patient is aware she is to f/u with PCP. - Lab Data Result diagrams: 05/01/20 11:40 05/01/20 11:40 Lab Results 05/01/20 05/01/20 05/01/20 Range/Units 11:40 11:40 11:48 WBC 10.9 H (3.8-10.6) k/uL RBC 5.07 (3.80-5.40) m/uL Hgb 14.2 (11.4-16.0) gm/dL Hct 44.0 (34.0-46.0) % MCV 86.7 (80.0-100.0) fL MCH 28.0 (25.0-35.0) pg MCHC 32.3 (31.0-37.0) g/dL RDW 12.8 (11.5-15.5) % Plt Count 409 (150-450) k/uL Neutrophils % 60 % Lymphocytes % 32 % Monocytes % 5 % Eosinophils % 1 % Basophils % 0 % Neutrophils # 6.6 (1.3-7.7) k/uL Lymphocytes # 3.5 (1.0-4.8) k/uL Monocytes # 0.5 (0-1.0) k/uL Eosinophils # 0.1 (0-0.7) k/uL Basophils # 0.0 (0-0.2) k/uL Sodium 137 (137-145) mmol/L Potassium 4.2 (3.5-5.1) mmol/L Chloride 105 (98-107) mmol/L Carbon Dioxide 24 (22-30) mmol/L Anion Gap 8 mmol/L BUN 12 (7-17) mg/dL Creatinine 0.59 (0.52-1.04) mg/dL Est GFR (CKD-EPI)AfAm >90 (>60 ml/min/1.73 sqM) Est GFR (CKD-EPI)NonAf >90 (>60 ml/min/1.73 sqM) Glucose 85 (74-99) mg/dL Calcium 9.6 (8.4-10.2) mg/dL Total Bilirubin 0.4 (0.2-1.3) mg/dL AST 30 (14-36) U/L ALT 44 H (4-34) U/L Alkaline Phosphatase 97 (38-126) U/L Total Protein 7.4 (6.3-8.2) g/dL Albumin 4.3 (3.5-5.0) g/dL Amylase 50 (30-110) U/L Lipase 49 (23-300) U/L Urine Color Light Yellow Urine Appearance Clear (Clear) Urine pH 5.0 (5.0-8.0) Ur Specific [place] 1.007 (1.001-1.035) Urine Protein Negative (Negative) Urine Glucose (UA) Negative (Negative) Urine Ketones Negative (Negative) Urine Blood Negative (Negative) Urine Nitrite Negative (Negative) Urine Bilirubin Negative (Negative) Urine Urobilinogen <2.0 (<2.0) mg/dL Ur Leukocyte Esterase Negative (Negative) Urine HCG, Qual (Not Detectd) 05/01/20 Range/Units 11:48 WBC (3.8-10.6) k/uL RBC (3.80-5.40) m/uL Hgb (11.4-16.0) gm/dL Hct (34.0-46.0) % MCV (80.0-100.0) fL MCH (25.0-35.0) pg MCHC (31.0-37.0) g/dL RDW (11.5-15.5) % Plt Count (150-450) k/uL Neutrophils % % Lymphocytes % % Monocytes % % Eosinophils % % Basophils % % Neutrophils # (1.3-7.7) k/uL Lymphocytes # (1.0-4.8) k/uL Monocytes # (0-1.0) k/uL Eosinophils # (0-0.7) k/uL Basophils # (0-0.2) k/uL Sodium (137-145) mmol/L Potassium (3.5-5.1) mmol/L Chloride (98-107) mmol/L Carbon Dioxide (22-30) mmol/L Anion Gap mmol/L BUN (7-17) mg/dL Creatinine (0.52-1.04) mg/dL Est GFR (CKD-EPI)AfAm (>60 ml/min/1.73 sqM) Est GFR (CKD-EPI)NonAf (>60 ml/min/1.73 sqM) Glucose (74-99) mg/dL Calcium (8.4-10.2) mg/dL Total Bilirubin (0.2-1.3) mg/dL AST (14-36) U/L ALT (4-34) U/L Alkaline Phosphatase (38-126) U/L Total Protein (6.3-8.2) g/dL Albumin (3.5-5.0) g/dL Amylase (30-110) U/L Lipase (23-300) U/L Urine Color Urine Appearance (Clear) Urine pH (5.0-8.0) Ur Specific [place] (1.001-1.035) Urine Protein (Negative) Urine Glucose (UA) (Negative) Urine Ketones (Negative) Urine Blood (Negative) Urine Nitrite (Negative) Urine Bilirubin (Negative) Urine Urobilinogen (<2.0) mg/dL Ur Leukocyte Esterase (Negative) Urine HCG, Qual Not Detected (Not Detectd) Disposition Clinical Impression: Vomiting, Abdominal cramping Disposition: HOME SELF-CARE Condition: Good Instructions (If sedation given, give patient instructions): Acute Nausea and Vomiting (ED) Additional Instructions: Please use medication as discussed. Please follow-up with family doctor in the next 2 days. Please return to emergency room if the symptoms increase or worsen or for any other concerns. Is patient prescribed a controlled substance at d/c from ED?: No Referrals: Humble Babb MD [Primary Care Provider] - 1-2 days Time of Disposition: 12:46
[2020-05-01 13:08] VITALS: BP 107/66; PULSE 68; RESP 17; TEMP 97
== END 2020-05-01 13:07 | disposition home or self-care (01) ==
LOC: EC 10:58
DX: R10.9 Unspecified abdominal pain (principal); R11.10 Vomiting, unspecified; D72.829 Elevated white blood cell count, unspecified; G47.30 Sleep apnea, unspecified; F41.9 Anxiety disorder, unspecified; F32.9 Major depressive disorder, single episode, unspecified; Z79.899 Other long term (current) drug therapy; Z91.018 Allergy to other foods; Z90.89 Acquired absence of other organs; Z90.49 Acquired absence of other specified parts of digestive tract; Z99.89 Dependence on other enabling machines and devices
CPT/HCPCS: 36415; 80053; 82150; 83690; 85025; 81003; 81025; 74177; 99284; 96374; 96361 ×2; J2405; Q9967

== ENCOUNTER → 2020-07-23 | Outpatient (CLI) | payer MEDICAID ==
--- NOTE | 2020-07-23 19:45 | SFUN ---
SLEEP CENTER FOLLOW UP NOTE DATE OF SERVICE: 07/23/2020 This patient is a 34-year-old lady who has been followed in Sleep Center for treatment of obstructive sleep apnea-hypopnea syndrome. The patient successfully continues to use her CPAP equipment. She sleeps well with the machine, does not snore. [place] Sleepiness Scale today is 7, which is in normal range. I checked her CPAP unit. Range of the pressure is 5 to 14, average pressure 12.7, usage 30/30 nights for more than 4 hours, average 9 hours per night. Leak is only 4 L/minute, which is perfect. Apnea-hypopnea index for the last night 3, for the last month average 5.3. MEDICATIONS: Prozac, Xanax, Bentyl, trazodone. PHYSICAL EXAMINATION: GENERAL: A pleasant patient in no distress. VITAL SIGNS: BP 128/73, HR 89, RR 15, height 5 feet 3 inches, weight 230, BMI 40.7, temperature 98.0, oxygen saturation at room air 96%. HEENT: PERRLA, EOMI. Evaluation of oropharynx showed tongue protrudes midline. Low position of soft palate. Mallampati IV. NECK: Supple. No JVD. Thyroid is not palpable. LUNGS: Clear to percussion and to auscultation. Good air exchange. No wheezing or rhonchi. HEART: S1, S2 regular. No murmurs, gallops or rubs. ABDOMEN: Slightly obese. EXTREMITIES: No clubbing or cyanosis. AUDIOMETRIST: Awake, alert, and oriented X3. Cranial nerves 2 to 7 intact. There is no fasciculation or atrophy. noted. No focal deficits observed. IMPRESSION: 1. Obstructive sleep apnea-hypopnea syndrome, 100% compliance with treatment. 2. Obesity. 3. Hypothyroidism. 4. Depression. 5. Anxiety. 6. History of insulin resistance. PLAN: 1. Patient will continue to use PAP equipment every night for the whole night. 2. Sleep hygiene with regular time in bed for at least 7-1/2 to 8 hours. 3. Precautions related to driving. No driving if feeling sleepiness. 4. I will maintain all necessary prescription for PAP supplies including mask, tube, filters. 5. Watching weight. 6. No driving if feeling sleepiness. 7. Follow-up visit in 6 months or earlier if patient has any problems. Thank you very much for allowing me to participate in the management of your patient. Sincerely, Bryan Crabtree MD, PhD, FAASM Diplomat of [place] [employer] [place] [employer] [facility] [place] MMKIN / ISHAN: [id number] /
== END | disposition home or self-care (01) ==
LOC: SLEEP 16:01
PROVIDERS: ATTEND Internal Medicine
DX: G47.33 Obstructive sleep apnea (adult) (pediatric) (principal); E66.9 Obesity, unspecified; E03.9 Hypothyroidism, unspecified; F32.9 Major depressive disorder, single episode, unspecified; F41.9 Anxiety disorder, unspecified; Z86.39 Personal history of other endocrine, nutritional and metabolic disease; Z99.89 Dependence on other enabling machines and devices

== ENCOUNTER 2020-07-29 16:00 | Observation (INO) | payer MEDICAID ==
--- NOTE | 2020-07-29 16:32 | ED ---
SOB HPI <Alvin Lewis - Last Filed: 07/29/20 20:29> - General Source: patient Mode of arrival: ambulatory Limitations: no limitations <Siva Hurley - Last Filed: 07/29/20 20:41> - General Chief Complaint: Shortness of Breath Stated Complaint: SOB Time Seen by Provider: 07/29/20 16:16 - History of Present Illness Initial Comments: Patient is a 34-year-old male presenting to emergency Department with a chief complaint shortness of breath. Patient states that shortness of breath started early this morning is gradually increasing severity. Patient reports like she has to "suck in air". She denies any wheezing or coughing. She also reports some midsternal chest pain without any radiation to started after the shortness of breath. Patient states the chest pain is pleuritic in nature. She denies any calf pain or unilateral leg swelling. She also feels slightly dizzy but not lightheaded. She denies any diaphoretic episodes. Denies nausea vomiting diarrhea. Denies smoking, hypertension or diabetes. She does report hypercholesterolemia that is currently being treated with diet and exercise. (Siva Hurley) - Related Data Home Medications Medication Instructions Recorded Confirmed ALPRAZolam [Xanax] 0.25 mg PO DAILY PRN 08/29/15 07/29/20 Cholecalciferol [Vitamin D3 (25 6,000 unit PO DAILY 07/29/20 07/29/20 Mcg = 1000 Iu)] Dicyclomine [Bentyl] 10 mg PO BID 07/29/20 07/29/20 FLUoxetine HCL [PROzac] 60 mg PO DAILY 07/29/20 07/29/20 traZODone HCL 25 mg PO HS 07/29/20 07/29/20 Allergies Allergy/AdvReac Type Severity Reaction Status Date / Time horse radish Allergy Anaphylaxis Uncoded 07/29/20 19:56 olives Allergy Rash/Hives Uncoded 07/29/20 19:56 Review of Systems ROS Other: All systems not noted in ROS Statement are negative. <Alvin Lewis - Last Filed: 07/29/20 20:29> ROS Other: All systems not noted in ROS Statement are negative. <Siva Hurley - Last Filed: 07/29/20 20:41> ROS Statement: Those systems with pertinent positive or pertinent negative responses have been documented in the HPI. Past Medical History Past Medical History: Sleep Apnea/CPAP/BIPAP, Thyroid Disorder Additional Past Medical History / Comment(s): depression, anxiety History of Any Multi-Drug Resistant Organisms: None Reported Past Surgical History: Appendectomy, Cholecystectomy Additional Past Surgical History / Comment(s): D&C, third molar removal Additional Past Anesthesia/Blood Transfusion Reaction / Comment(s): "Hard time waking up" Past Psychological History: Anxiety, Depression Smoking Status: Never smoker Past Alcohol Use History: None Reported Past Drug Use History: None Reported - Past Family History Mother Additional Family Medical History / Comment(s): schizophrenia <Siva Hurley - Last Filed: 07/29/20 20:41> General Exam Limitations: no limitations General appearance: alert, in no apparent distress Head exam: Present: atraumatic, normocephalic, normal inspection Eye exam: Present: normal appearance, PERRL, EOMI Pupils: Present: normal accommodation ENT exam: Present: normal exam, normal oropharynx, mucous membranes moist, TM's normal bilaterally, normal external ear exam Neck exam: Present: normal inspection, full ROM. Absent: tenderness Respiratory exam: Present: normal lung sounds bilaterally, chest wall tenderness (Reproducible midsternal chest pain with palpation). Absent: respiratory distress, wheezes, rales Cardiovascular Exam: Present: regular rate, normal rhythm, normal heart sounds Extremities exam: Present: normal inspection, full ROM, normal capillary refill, other (+2 ulnar and radial pulses bilateral.). Absent: tenderness Back exam: Present: normal inspection, full ROM. Absent: tenderness Neurological exam: Present: alert, oriented X3, normal gait Psychiatric exam: Present: normal affect, normal mood Skin exam: Present: warm, dry, intact, normal color <Siva Hurley - Last Filed: 07/29/20 20:41> Course Vital Signs 07/29/20 07/29/20 07/29/20 16:02 18:11 19:01 Temperature 98.3 F Pulse Rate 125 H 107 H 89 Respiratory 22 20 16 Rate Blood Pressure 134/95 129/80 119/89 O2 Sat by Pulse 97 98 100 Oximetry Medical Decision Making - Lab Data Result diagrams: 07/29/20 16:45 07/29/20 16:45 <Alvin Lewis - Last Filed: 07/29/20 20:29> - Lab Data Result diagrams: 07/29/20 16:45 07/29/20 16:45 <Siva Hurley - Last Filed: 07/29/20 20:41> - Medical Decision Making Patient was earlier evaluated by myself, Dr. Lewis. Patient did have some discomfort in her chest with some pleuritic components. There was some mild tenderness on palpation. Patient complains more of dyspnea. Patient is mildly sweaty. Patient denies feeling anxious. Patient did not improve with Ativan nor or fever. Computed tomography scan was done negative for pulmonary embolism. Case was discussed with Dr. Babb who will admit his patient with cardiology consult. Repeat heart rate was still 1:15. (Alvin Lewis) Patient is a 34-year-old male presenting to emergency Department with a chief complaint of shortness of breath. Some tenderness to palpation in the midsternal region of chest. This appears suprapubic chest pain. Patient states shortness breaths. Concerned and the actual chest pain. CBC CMP is unremarkable. Initial troponins are negative. D-dimer is negative. On r eevaluation, patient continues to feel short of breath. Her lungs are clear to auscultation. Chest x-ray is unremarkable. Patient was given Ativan in hopes of alleviating some of the exactly. This did not improve her symptoms. Dr. Lewis also evaluated the patient. He advised CT imaging to rule out PE. CT of the chest is unremarkable. Dr. Lewis spoke with Dr. Babb who advised morphine and reevaluation. Patient did not feel any better. Her heart rate continues to fluctuate between 105 and 115. Her shortness of breath has still not resolved. Patient will be admitted for further medical management.. Admitting physician is Dr. Babb. Cardiology consult. (Siva Hurley) - Lab Data Lab Results 07/29/20 07/29/20 07/29/20 Range/Units 16:45 16:45 16:45 WBC 11.8 H (3.8-10.6) k/uL RBC 5.27 (3.80-5.40) m/uL Hgb 14.8 (11.4-16.0) gm/dL Hct 44.3 (34.0-46.0) % MCV 84.1 (80.0-100.0) fL MCH 28.0 (25.0-35.0) pg MCHC 33.3 (31.0-37.0) g/dL RDW 12.6 (11.5-15.5) % Plt Count 476 H (150-450) k/uL Neutrophils % 63 % Lymphocytes % 30 % Monocytes % 5 % Eosinophils % 1 % Basophils % 1 % Neutrophils # 7.4 (1.3-7.7) k/uL Lymphocytes # 3.6 (1.0-4.8) k/uL Monocytes # 0.6 (0-1.0) k/uL Eosinophils # 0.1 (0-0.7) k/uL Basophils # 0.1 (0-0.2) k/uL PT 9.5 (9.0-12.0) sec INR 0.9 (<1.2) APTT 24.9 (22.0-30.0) sec D-Dimer 0.34 (<0.60) mg/L FEU Sodium 137 (137-145) mmol/L Potassium 3.9 (3.5-5.1) mmol/L Chloride 105 (98-107) mmol/L Carbon Dioxide 22 (22-30) mmol/L Anion Gap 10 mmol/L BUN 9 (7-17) mg/dL Creatinine 0.70 (0.52-1.04) mg/dL Est GFR (CKD-EPI)AfAm >90 (>60 ml/min/1.73 sqM) Est GFR (CKD-EPI)NonAf >90 (>60 ml/min/1.73 sqM) Glucose 107 H (74-99) mg/dL Calcium 10.0 (8.4-10.2) mg/dL Total Bilirubin 0.3 (0.2-1.3) mg/dL AST 57 H (14-36) U/L ALT 58 H (4-34) U/L Alkaline Phosphatase 120 (38-126) U/L Troponin I (0.000-0.034) ng/mL Total Protein 7.5 (6.3-8.2) g/dL Albumin 4.5 (3.5-5.0) g/dL 07/29/20 Range/Units 16:45 WBC (3.8-10.6) k/uL RBC (3.80-5.40) m/uL Hgb (11.4-16.0) gm/dL Hct (34.0-46.0) % MCV (80.0-100.0) fL MCH (25.0-35.0) pg MCHC (31.0-37.0) g/dL RDW (11.5-15.5) % Plt Count (150-450) k/uL Neutrophils % % Lymphocytes % % Monocytes % % Eosinophils % % Basophils % % Neutrophils # (1.3-7.7) k/uL Lymphocytes # (1.0-4.8) k/uL Monocytes # (0-1.0) k/uL Eosinophils # (0-0.7) k/uL Basophils # (0-0.2) k/uL PT (9.0-12.0) sec INR (<1.2) APTT (22.0-30.0) sec D-Dimer (<0.60) mg/L FEU Sodium (137-145) mmol/L Potassium (3.5-5.1) mmol/L Chloride (98-107) mmol/L Carbon Dioxide (22-30) mmol/L Anion Gap mmol/L BUN (7-17) mg/dL Creatinine (0.52-1.04) mg/dL Est GFR (CKD-EPI)AfAm (>60 ml/min/1.73 sqM) Est GFR (CKD-EPI)NonAf (>60 ml/min/1.73 sqM) Glucose (74-99) mg/dL Calcium (8.4-10.2) mg/dL Total Bilirubin (0.2-1.3) mg/dL AST (14-36) U/L ALT (4-34) U/L Alkaline Phosphatase (38-126) U/L Troponin I <0.012 (0.000-0.034) ng/mL Total Protein (6.3-8.2) g/dL Albumin (3.5-5.0) g/dL - EKG Data EKG Comments: Sinus tachycardia. Nonspecific T-wave in lead 3. Ventricular rate 103, LA 158, QRS 76, QTC 458. (Siva Hurley) Disposition <Alvin Lewis - Last Filed: 07/29/20 20:29> Is patient prescribed a controlled substance at d/c from ED?: No Time of Disposition: 20:41 <Siva Hurley - Last Filed: 07/29/20 20:41> Clinical Impression: Atypical chest pain, Shortness of breath Disposition: ADMITTED IP TO THIS HOSP Condition: Good Referrals: Humble Babb MD [Primary Care Provider] - 1-2 days
[2020-07-29 17:15] LABS: Basophils # (A) 0.1 k/uL (0-0.2); Basophils % (A) 1 %; Eosinophils # (A) 0.1 k/uL (0-0.7); Eosinophils % (A) 1 %; HCT 44.3 % (34.0-46.0); HGB 14.8 gm/dL (11.4-16.0); Lymphocytes # (A) 3.6 k/uL (1.0-4.8); Lymphocytes % (A) 30 %; MCHC 33.3 g/dL (31.0-37.0); MCV 84.1 fL (80.0-100.0); Mean Platelet Volume 6.2; Monocytes # (A) 0.6 k/uL (0-1.0); Monocytes % (A) 5 %; Neutrophils # (A) 7.4 k/uL (1.3-7.7); Neutrophils % (A) 63 %; Platelet Count 476 k/uL (150-450); RBC 5.27 m/uL (3.80-5.40); RDW 12.6 % (11.5-15.5); WBC 11.8 k/uL (3.8-10.6)
[2020-07-29 17:23] LABS: ALT 58 U/L (4-34); AST 57 U/L (14-36); African American GFR (CKD) >90 (>60 ml/min/1.73 sqM); Albumin 4.5 g/dL (3.5-5.0); Alkaline Phosphatase 120 U/L (38-126); Anion Gap 10 mmol/L; Blood Urea Nitrogen 9 mg/dL (7-17); Carbon Dioxide 22 mmol/L (22-30); Chloride 105 mmol/L (98-107); Glucose 107 mg/dL (74-99); Non-African American GFR(CKD) >90 (>60 ml/min/1.73 sqM); Potassium 3.9 mmol/L (3.5-5.1); Sodium 137 mmol/L (137-145); Total Bilirubin 0.3 mg/dL (0.2-1.3); Total Protein 7.5 g/dL (6.3-8.2)
--- NOTE | 2020-07-29 17:27 | XR ---
EXAMINATION TYPE: XR chest 2V DATE OF EXAM: 07/29/2020 COMPARISON: 06/17/2017 HISTORY: Short of breath Heart and mediastinum are normal. Lungs are clear. Diaphragm is normal. Bony thorax appears normal. T here are chest leads. IMPRESSION: Normal chest. No change.
[2020-07-29 17:45] LABS: D-Dimer 0.34 mg/L FEU (<0.60); INR 0.9 (<1.2); Partial Thromboplastin Time 24.9 sec (22.0-30.0); Prothrombin Time 9.5 sec (9.0-12.0)
[2020-07-29] MEDS ORDERED: LORazepam 2 MG/ML INJ IV STA (18:29)
--- NOTE | 2020-07-29 19:10 | CT ---
EXAMINATION TYPE: CT chest angio for PE DATE OF EXAM: 07/29/2020 COMPARISON: None HISTORY: Difficulty breathing. CT DLP: 601.1 mGycm Automated exposure control for dose reduction was used. CONTRAST: Performed with IV Contrast, patient injected with 100 mL of Isovue 370. There are 3-D post processed images. The lungs are clear of infiltrate. There is no evidence of a pulmonary mass. There is no mediastinal adenopathy. There are no hilar masses. Heart size is normal. Thoracic aorta is intact. There is no an eurysm or dissection. There is normal contrast opacification of the pulmonary arteries. There are no filling defects. Upper abdominal soft tissues are intact. The bony thorax is intact. IMPRESSION: Negative exam. No evidence of pulmonary embolism.
[2020-07-29] MEDS ORDERED: MORPHINE SULFATE 4 MG/ML SYRINGE IVP STA (19:43)
[2020-07-29] MEDS ORDERED: NITROGLYCERIN SL TABS 0.4 MG TAB SUBLINGUAL PRN (20:37)
[2020-07-29] MEDS ORDERED: ALPRAZolam 0.25 MG TAB PO PRN (23:53)
[2020-07-30 04:34] LABS: Cholesterol 238 mg/dL (<200); HDL Cholesterol 40 mg/dL (40-60); Triglycerides 457 mg/dL (<150)
[2020-07-30 08:16] VITALS: BP 116/80; PULSE 98; RESP 16; TEMP 98.1
[2020-07-30] MEDS ORDERED: FLUoxetine HCL 20 MG CAP PO SCH (09:00)
[2020-07-30] MEDS ORDERED: DICYCLOMINE 10 MG CAP PO SCH (09:00)
[2020-07-30] MEDS ORDERED: ASPIRIN 325 MG TAB PO SCH (09:00)
[2020-07-30] MEDS ORDERED: CHOLECALCIFEROL 1,000 UNIT TAB PO SCH (09:00)
--- NOTE | 2020-07-30 09:31 | P.CRDCN ---
History of Present Illness History of present illness: HISTORY OF PRESENTING ILLNESS This is a pleasant 34-year-old female past medical history significant for dyslipidemia, anxiety and obesity. She denies prior history of coronary ar trina disease and does not follow with a physician practice market manager for any reason. We have been asked to see in consultation for shortness of breath. She states she woke up yesterday morning feeling short of breath. She walked from upstairs to downstairs and felt winded. As the day progressed she had ongoing and worsening shortness of breath. She states even with small conversation she was just neck. She had one episode of a tight sensation while she was struggling to breathe. There is no discomfort in the back, arm, neck or jaw. She had no associated dizziness, nausea, vomiting or diaphoresis. She recently underwent a stress test in November of this year with a Cardiolite stress test that was negative for reversible cardiac ischemia. She walked on the treadmill for 6 minutes. Echocardiogram performed at that time revealed preserved LV systolic function with ejection fraction 55-60%. DIAGNOSTICS EKG reveals sinus mechanism with no acute ischemic changes. Chest xray negative for an acute cardiopulmonary process. CTA of the chest is negative for pulmonary embolism with no aneurysm or disse ction of the thoracic aorta. Laboratory reviewed, WBC 11.8, hemoglobin 14.8, platelets 476, d-dimer 0.34, sodium 137, potassium 3.9, creatinine 0.7, AST 57, ALT 58, cardiac enzymes negative 3, LDL 40, triglycerides 457 and total cholesterol 238. She takes no daily cardiac medications. REVIEW OF SYSTEMS At the time of my exam: CONSTITUTIONAL: Denies fever or chills. CARDIOVASCULAR: Denies chest pain, shortness of breath, orthopnea, PND or palpitations. RESPIRATORY: Denies cough. GASTROINTESTINAL: Denies abdominal pain, diarrhea, constipation, nausea or vomiting. MUSCULOSKELETAL: Denies myalgias. NEUROLOGIC: Denies numbness, tingling or weakness. ENDOCRINE: Denies fatigue, weight change, polydipsia or polyurina. GENITOURINARY: Denies burning, hematuria or urgency with micturation. HEMATOLOGIC: Denies history of anemia or bleeding. PHYSICAL EXAMINATION Blood pressure 116/80 heart rate 98 afebrile and maintaining oxygen saturation on room air. CONSTITUTIONAL: No apparent distress. Obese. HEENT: Head is normocephalic. Pupils are equal, round. Sclerae anicteric. Mucous membranes of the mouth are moist. No JVD. No carotid bruit. CHEST EXAMINATION: Lungs are clear to auscultation. No chest wall tenderness is noted on palpation or with deep breathing. HEART EXAMINATION: Regular rate and rhythm. S1, S2 heard. No murmurs, gallops or rub. ABDOMEN: Soft, nontender. Positive bowel sounds. EXTREMITIES: 2+ peripheral pulses, no lower extremity edema and no calf tenderness. NEUROLOGIC EXAMINATION: Patient is awake, alert and oriented x3. ASSESSMENT Shortness of breath, and acute coronary event has been ruled out. Leukocytosis History of anxiety Obesity, BMI 39 PLAN An acute coronary event has been ruled out. Clinically the patient is euvolemic. Symptoms are atypical to be related to angina and the patient had a recent stress test and echocardiogram that were both normal. Consider underlying viral infection. No further cardiac workup at this time. Follow-up in the office in [address] Helm for further testing is warranted. Thank you kindly for this consultation. Nurse Practitioner note has been reviewed, I agree with a documented findings and plan of care. Patient was seen and examined. Past Medical History Past Medical History: Sleep Apnea/CPAP/BIPAP Additional Past Medical History / Comment(s): depression, anxiety History of Any Multi-Drug Resistant Organisms: None Reported Past Surgical History: Appendectomy, Cholecystectomy Additional Past Surgical History / Comment(s): D&C, third molar removal Additional Past Anesthesia/Blood Transfusion Reaction / Comment(s): "Hard time waking up" Past Psychological History: Anxiety, Depression Additional Psychological History / Comment(s): not diagnosed with PTSD but does have nightmare Smoking Status: Never smoker Past Alcohol Use History: None Reported Past Drug Use History: None Reported - Past Family History Mother Additional Family Medical History / Comment(s): schizophrenia Medications and Allergies Home Medications Medication Instructions Recorded Confirmed Type ALPRAZolam [Xanax] 0.25 mg PO DAILY PRN 08/29/15 07/29/20 History Cholecalciferol [Vitamin D3 (25 6,000 unit PO DAILY 07/29/20 07/29/20 History Mcg = 1000 Iu)] Dicyclomine [Bentyl] 10 mg PO BID 07/29/20 07/29/20 History FLUoxetine HCL [PROzac] 60 mg PO DAILY 07/29/20 07/29/20 History traZODone HCL 25 mg PO HS 07/29/20 07/29/20 History Fenofibrate Nanocrystallized 145 mg PO DAILY #90 tablet 07/30/20 Rx [Tricor] Allergies Allergy/AdvReac Type Severity Reaction Status Date / Time horse radish Allergy Anaphylaxis Uncoded 07/29/20 19:56 olives Allergy Rash/Hives Uncoded 07/29/20 19:56 Physical Exam Vitals: Vital Signs Temp Pulse Pulse Resp BP BP BP 07/30/20 07:29 98.1 F 98 16 116/80 07/30/20 04:30 97.9 F 99 18 114/79 07/29/20 21:55 98.3 F 108 H 18 125/87 07/29/20 21:07 100 18 111/78 07/29/20 20:37 07/29/20 19:01 89 16 119/89 07/29/20 18:11 107 H 20 129/80 07/29/20 16:02 98.3 F 125 H 22 134/95 Pulse Ox 07/30/20 07:29 97 07/30/20 04:30 98 07/29/20 21:55 98 07/29/20 21:07 98 07/29/20 20:37 97 07/29/20 19:01 100 07/29/20 18:11 98 07/29/20 16:02 97 Intake and Output 07/29/20 07/30/20 07/30/20 22:59 06:59 14:59 Intake Total 270 Balance 270 Intake: Oral 270 Other: Voiding Method Toilet Toilet # Voids 1 Weight 102.058 kg Results 07/29/20 16:45 07/29/20 16:45 Cardiac Enzymes 07/29/20 07/29/20 07/29/20 Range/Units 16:45 16:45 21:04 AST 57 H (14-36) U/L Troponin I <0.012 <0.012 (0.000-0.034) ng/mL 07/29/20 Range/Units 23:32 AST (14-36) U/L Troponin I <0.012 (0.000-0.034) ng/mL Coagulation 07/29/20 Range/Units 16:45 PT 9.5 (9.0-12.0) sec APTT 24.9 (22.0-30.0) sec Lipids 07/29/20 Range/Units 16:45 Triglycerides 457 H (<150) mg/dL Cholesterol 238 H (<200) mg/dL HDL Cholesterol 40 (40-60) mg/dL CBC 07/29/20 Range/Units 16:45 WBC 11.8 H (3.8-10.6) k/uL RBC 5.27 (3.80-5.40) m/uL Hgb 14.8 (11.4-16.0) gm/dL Hct 44.3 (34.0-46.0) % Plt Count 476 H (150-450) k/uL Comprehensive Metabolic Panel 07/29/20 Range/Units 16:45 Sodium 137 (137-145) mmol/L Potassium 3.9 (3.5-5.1) mmol/L Chloride 105 (98-107) mmol/L Carbon Dioxide 22 (22-30) mmol/L BUN 9 (7-17) mg/dL Creatinine 0.70 (0.52-1.04) mg/dL Glucose 107 H (74-99) mg/dL Calcium 10.0 (8.4-10.2) mg/dL AST 57 H (14-36) U/L ALT 58 H (4-34) U/L Alkaline Phosphatase 120 (38-126) U/L Total Protein 7.5 (6.3-8.2) g/dL Albumin 4.5 (3.5-5.0) g/dL Current Medications Generic Name Dose Route Start Last Admin Trade Name Freq PRN Reason Stop Dose Admin Alprazolam 0.25 mg 07/29/20 23:53 Alprazolam 0.25 Mg Tab PO DAILY PRN anxiety Cholecalciferol 6,000 unit 07/30/20 09:00 07/30/20 07:30 Cholecalciferol 1,000 Unit Tab PO 6,000 unit DAILY KEVIN Administration Dicyclomine HCl 10 mg 07/30/20 09:00 07/30/20 07:29 Dicyclomine 10 Mg Cap PO 10 mg BID KEVIN Administration Fluoxetine HCl 60 mg 07/30/20 09:00 07/30/20 07:30 Fluoxetine Hcl 20 Mg Cap PO 60 mg DAILY KEVIN Administration Nitroglycerin 0.4 mg 09/16/20 20:37 Nitroglycerin Sl Tabs 0.4 Mg Tab SUBLINGUAL Q5M PRN Chest Pain Trazodone HCl 25 mg 07/30/20 21:00 Trazodone Hcl 50 Mg Tab PO HS KEVIN Intake and Output 07/29/20 07/30/20 07/30/20 22:59 06:59 14:59 Intake Total 270 Balance 270 Intake: Oral 270 Other: Voiding Method Toilet Toilet # Voids 1 Weight 102.058 kg 07/29/20 16:45 07/29/20 16:45
[2020-07-30 12:46] LABS: Basophils # (A) 0.1 k/uL (0-0.2); Basophils % (A) 1 %; Eosinophils # (A) 0.1 k/uL (0-0.7); Eosinophils % (A) 1 %; HCT 44.5 % (34.0-46.0); HGB 14.2 gm/dL (11.4-16.0); Lymphocytes # (A) 2.8 k/uL (1.0-4.8); Lymphocytes % (A) 28 %; MCH 27.6 pg (25.0-35.0); MCHC 31.9 g/dL (31.0-37.0); MCV 86.6 fL (80.0-100.0); Mean Platelet Volume 6.6; Monocytes # (A) 0.5 k/uL (0-1.0); Monocytes % (A) 5 %; Neutrophils # (A) 6.4 k/uL (1.3-7.7); Neutrophils % (A) 64 %; Platelet Count 458 k/uL (150-450); RBC 5.14 m/uL (3.80-5.40); RDW 12.7 % (11.5-15.5); WBC 9.9 k/uL (3.8-10.6)
[2020-07-30 12:48] LABS: ALT 64 U/L (4-34); AST 52 U/L (14-36); African American GFR (CKD) >90 (>60 ml/min/1.73 sqM); Albumin 4.3 g/dL (3.5-5.0); Alkaline Phosphatase 102 U/L (38-126); Anion Gap 7 mmol/L; Blood Urea Nitrogen 11 mg/dL (7-17); Calcium 9.8 mg/dL (8.4-10.2); Carbon Dioxide 26 mmol/L (22-30); Chloride 104 mmol/L (98-107); Glucose 86 mg/dL (74-99); Non-African American GFR(CKD) >90 (>60 ml/min/1.73 sqM); Potassium 4.4 mmol/L (3.5-5.1); Sodium 137 mmol/L (137-145); Total Bilirubin 0.4 mg/dL (0.2-1.3); Total Protein 7.2 g/dL (6.3-8.2)
--- NOTE | 2020-07-30 13:23 | P.HPIM ---
History of Present Illness H&P Date: 07/30/20 Chief Complaint: Chest pain, shortness of breath History and Physical and Discharge Summary This is a 34-year-old female with history of obesity, sleep apnea on CPAP, dyslipidemia, depression, anxiety, presented to the ER with complaints of worsening shortness of breath accompanied by chest tightness. Denies lightheadedness dizziness or focal deficits. Denies nausea vomiting or diarrhea. Denies abdominal pain. Denies fever or chills. Denies cough or congestion. Chest x-ray reported normal chest, no change. Chest CTA reported no evidence of PE, negative exam. EKG reported sinus tachycardia, possible anterior infarct, age undetermined. Troponins negative 3. BNP 17. Triglycerides 457, cholesterol 238, HDL 40. Afebrile, tachycardic on admission with heart rates up to 120s, tachypneic with respiratory rate of 22, blood pressure stable, maintaining O2 sats of high 90s on room air on admission. Hematology unremarkable with the exception of WBC 11.8, platelets 476. Coagulation unremarkable. Sodium 137 potassium 3.9 BUN 9, creatinine 0.7, T bili normal, minimal elevation of LFTs; AST 57, ALT 58. Patient states he's been having diarrhea with mild diffuse abdominal cramping times a couple months and is scheduled for endoscopy with Dr. Celia Grey in September. Cardiology consulted. Review of Systems ROS Statement: Those systems with pertinent positive or pertinent negative responses have been documented in the HPI. ROS Other: All systems not noted in ROS Statement are negative. Past Medical History Past Medical History: Sleep Apnea/CPAP/BIPAP Additional Past Medical History / Comment(s): depression, anxiety History of Any Multi-Drug Resistant Organisms: None Reported Past Surgical History: Appendectomy, Cholecystectomy Additional Past Surgical History / Comment(s): D&C, third molar removal Additional Past Anesthesia/Blood Transfusion Reaction / Comment(s): "Hard time waking up" Past Psychological History: Anxiety, Depression Additional Psychological History / Comment(s): not diagnosed with PTSD but does have nightmare Smoking Status: Never smoker Past Alcohol Use History: None Reported Past Drug Use History: None Reported - Past Family History Mother Additional Family Medical History / Comment(s): schizophrenia Medications and Allergies Home Medications Medication Instructions Recorded Confirmed Type ALPRAZolam [Xanax] 0.25 mg PO DAILY PRN 08/29/15 07/29/20 History Cholecalciferol [Vitamin D3 (25 6,000 unit PO DAILY 07/29/20 07/29/20 History Mcg = 1000 Iu)] Dicyclomine [Bentyl] 10 mg PO BID 07/29/20 07/29/20 History FLUoxetine HCL [PROzac] 60 mg PO DAILY 07/29/20 07/29/20 History traZODone HCL 25 mg PO HS 07/29/20 07/29/20 History Atorvastatin [Lipitor] 20 mg PO HS #90 tab 07/30/20 Rx Fenofibrate Nanocrystallized 145 mg PO DAILY #90 tablet 07/30/20 Rx [Tricor] Allergies Allergy/AdvReac Type Severity Reaction Status Date / Time horse radish Allergy Anaphylaxis Uncoded 07/29/20 19:56 olives Allergy Rash/Hives Uncoded 07/29/20 19:56 Physical Exam Vitals: Vital Signs Temp Pulse Pulse Resp BP BP BP 07/30/20 08:23 98 16 07/30/20 07:29 98.1 F 98 16 116/80 07/30/20 04:30 97.9 F 99 18 114/79 07/29/20 21:55 98.3 F 108 H 18 125/87 07/29/20 21:07 100 18 111/78 07/29/20 20:37 07/29/20 19:01 89 16 119/89 07/29/20 18:11 107 H 20 129/80 07/29/20 16:02 98.3 F 125 H 22 134/95 Pulse Ox 07/30/20 08:23 07/30/20 07:29 97 07/30/20 04:30 98 07/29/20 21:55 98 07/29/20 21:07 98 07/29/20 20:37 97 07/29/20 19:01 100 07/29/20 18:11 98 07/29/20 16:02 97 Intake and Output 07/29/20 07/30/20 07/30/20 22:59 06:59 14:59 Intake Total 270 Balance 270 Intake: Oral 270 Other: Voiding Method Toilet Toilet Toilet # Voids 1 1 Weight 102.058 kg PHYSICAL EXAM: VITAL SIGNS: As above GENERAL: Sitting up in bed, no acute distress HEENT: Conjunctivae normal. eyes normal. NECK: No JVD. No thyroid enlargement. No LNs CARDIOVASCULAR: S1, S2 regular. No murmur RESPIRATION: Breath sounds diminished in the bases. No rhonchi or crackles. No bronchial breathing. ABDOMEN: Soft, nontender . No guarding. no masses palpable. No ascites, No hepatosplenomegaly.Bowel sounds heard. LEGS: No edema. no swelling PSYCHIATRY: Alert and oriented X3, mood and affect normal. NERVOUS SYSTEM: Cranial N 2-12 grossly normal. Moves all 4 limbs. No focal deficits. Strength and sensation grossly intact.. Skin: Warm and dry, no rash Lymphatic system. No LN neck axilla. Results CBC & Chem 7: 07/30/20 09:08 07/30/20 09:08 Labs: Abnormal Lab Results - Last 24 Hours (Table) 07/29/20 07/29/20 07/29/20 Range/Units 16:45 16:45 16:45 WBC 11.8 H (3.8-10.6) k/uL Plt Count 476 H (150-450) k/uL Glucose 107 H (74-99) mg/dL AST 57 H (14-36) U/L ALT 58 H (4-34) U/L Triglycerides 457 H (<150) mg/dL Cholesterol 238 H (<200) mg/dL Thrombosis Risk Factor Assmnt - Choose All That Apply Each Factor Represents 1 point: Obesity (BMI >25) Thrombosis Risk Factor Assessment Total Risk Factor Score: 1 Thrombosis Risk Factor Assessment Level: Low Risk Assessment and Plan Assessment: Worsening shortness of breath with accompanying chest pressure, acute coronary event ruled out as per cardiology, possible viral infection Leukocytosis Mild elevation of LFTs Hypercholesterol with Elevated triglycerides, statin added to med regimen Obstructive sleep apnea, wears CPAP Morbid Obesity, BMI 39.9 Depression Anxiety Chronic diarrhea, outpatient follow up with GI as previously scheduled Plan: Continue on current medication regime ,monitoring and symptomatic treatment. Evaluated by cardiology, no further workup recommended at this time as patient had a recent test and echo in November 2019 reported as normal. Cleared by cardiology for discharge. Flores virus testing ordered with results to be faxed to PCP. Patient will be discharged home today in stable condition with guarded prognosis. The impression and plan of care has been dictated as directed. : I performed a history and examination of this patient, discussed the same with the dictator. I agree with the dictator's note ,documented as a scribe. Any additional findings or plans will be noted.
[2020-07-30] MEDS ORDERED: ATORVASTATIN 20 MG TAB PO SCH (21:00)
[2020-07-30] MEDS ORDERED: traZODone HCL 50 MG TAB PO SCH (21:00)
== END 2020-07-30 13:44 ==
LOC: EC 16:00 → 3NCARDOBS 20:28
PROVIDERS: ADMIT Family Medicine; ATTEND Family Medicine
DX: R06.02 Shortness of breath (principal); R07.89 Other chest pain; R06.00 Dyspnea, unspecified; R61 Generalized hyperhidrosis; R00.0 Tachycardia, unspecified; D72.829 Elevated white blood cell count, unspecified; R79.89 Other specified abnormal findings of blood chemistry; E78.00 Pure hypercholesterolemia, unspecified; E78.1 Pure hyperglyceridemia; G47.33 Obstructive sleep apnea (adult) (pediatric); E66.01 Morbid (severe) obesity due to excess calories; F32.9 Major depressive disorder, single episode, unspecified; F41.9 Anxiety disorder, unspecified; K52.9 Noninfective gastroenteritis and colitis, unspecified; E07.9 Disorder of thyroid, unspecified; E78.5 Hyperlipidemia, unspecified; F51.5 Nightmare disorder; Z20.828 Contact with and (suspected) exposure to other viral communicable diseases; Z79.899 Other long term (current) drug therapy; Z91.018 Allergy to other foods; Z99.89 Dependence on other enabling machines and devices; Z90.49 Acquired absence of other specified parts of digestive tract; Z98.890 Other specified postprocedural states; Z91.89 Other specified personal risk factors, not elsewhere classified; Z68.39 Body mass index [BMI] 39.0-39.9, adult; Z81.8 Family history of other mental and behavioral disorders
CPT/HCPCS: 93005 ×2; 96374; 96375; 99285; 36415; 85379; 83880; 80061; 80053 ×2; 84484; 85025 ×2; 85610; 85730; 71046; 71275; G0378 ×2; U0003; J2060; J2270; Q9967

== ENCOUNTER → 2020-08-11 | Outpatient (CLI) | payer MEDICAID ==
[2020-08-11 14:06] LABS: Basophils % (A) 0 %; Eosinophils # (A) 0.1 k/uL (0-0.7); Eosinophils % (A) 1 %; HCT 42.5 % (34.0-46.0); HGB 13.8 gm/dL (11.4-16.0); Lymphocytes # (A) 3.3 k/uL (1.0-4.8); Lymphocytes % (A) 33 %; MCH 27.8 pg (25.0-35.0); MCHC 32.4 g/dL (31.0-37.0); MCV 85.6 fL (80.0-100.0); Mean Platelet Volume 6.3; Monocytes # (A) 0.6 k/uL (0-1.0); Monocytes % (A) 6 %; Neutrophils # (A) 5.8 k/uL (1.3-7.7); Neutrophils % (A) 59 %; Platelet Count 482 k/uL (150-450); RBC 4.96 m/uL (3.80-5.40); RDW 12.8 % (11.5-15.5); WBC 9.8 k/uL (3.8-10.6)
[2020-08-12 00:48] LABS: Erythrocyte Sedimentation Rate 8 mm/Hr (0-20)
[2020-08-12 04:08] LABS: African American GFR (CKD) 109.9 (60.0-200.0); Albumin 4.7 g/dL (3.80-4.90); Albumin/Globulin Ratio 2.24 (1.60-3.17); Anion Gap 12.1 mmol/L (4.00-12.00); BUN/Creat Ratio 12.5 Ratio (12.00-20.00); C Reactive Protein 0.5 mg/dL (0.0-0.8); Calcium 9.8 mg/dL (8.7-10.3); Carbon Dioxide 22.9 mmol/L (21.6-31.8); Globulin 2.1 g/dL (1.6-3.3); Non-African American GFR(CKD) 94.8 (60.0-200.0); Total Bilirubin 0.3 mg/dL (0.3-1.2); Total Protein 6.8 g/dL (6.2-8.2)
== END | disposition home or self-care (01) ==
LOC: LABWHC1 11:36
PROVIDERS: ATTEND Nurse Practitioner Family
DX: R11.0 Nausea (principal); R06.02 Shortness of breath
CPT/HCPCS: 36415; 80053; 85025; 85652; 86140

== ENCOUNTER 2020-09-16 09:03 | Day surgery (SDC) | payer MEDICAID ==
[2020-09-11 16:08] VITALS: BMI 40.7
[~2020-09-16 09:03] MED LIST: LACTATED RINGERS 1,000 ML IV SCH
[2020-09-16 09:35] VITALS: TEMP 97.3
[2020-09-16] MEDS ORDERED: LIDOCAINE 1% (10MG/ML) FOR IV START INTRADERMA ONE (09:36)
[2020-09-16] MEDS ORDERED: ONDANSETRON 4 MG/2 ML VIAL ONE (10:12)
[2020-09-16] MEDS ORDERED: PROPOFOL 10 MG/ML 20 ML VIAL IV ONE (10:12)
[2020-09-16] MEDS ORDERED: LIDOCAINE 1% INJ 10MG/ML (20 ML MDV) ONE (10:12)
--- NOTE | 2020-09-16 10:38 | P.PCN ---
Date of Procedure: 09/16/20 Procedure(s) Performed: Brief history: Patient is a pleasant 34-year-old white female scheduled for an elective upper endoscopy as well as colonoscopy as a part of evaluation of abdominal pain, nausea vomiting and chronic diarrhea for the last 6 months duration. Procedure performed: Esophagogastroduodenoscopy with biopsy Colonoscopy with biopsy Preoperative diagnosis: Abdominal pain/chronic nausea vomiting Chronic diarrhea Anesthesia: MAC Procedure: After informed consent was obtained from the patient was brought into the endoscopy unit and IV sedation was administered by anesthesia under continuous monitoring. Initial digital rectal examination was normal. Olympus CF 160 video colonoscope was then inserted into the rectum and gradually advanced to the cecum without any difficulty. Careful examination was performed as the scope was gradually being withdrawn. The prep was excellent. The cecum, ascending colon, transverse colon, descending colon, sigmoid colon and rectum appeared normal. Random biopsies were done from ascending and descending colon to rule out microscopic/collagenous colitis Retroflexion was performed in the rectum and no lesions were noted. Patient tolerated the procedure well. She continued to remain sedation. The Olympus GF 160 video endoscope was i nserted inserted into the mouth and esophagus intubated without any difficulty and was gradually advanced into the stomach and duodenum and carefully examined. The bulb and second part of the duodenum appeared normal. Biopsies were done from the duodenum to rule out celiac disease. The scope was then withdrawn into the stomach adequately insufflated with air and upon careful examination the an trum had mild gastritis and biopsies were done from this area. The body, cardia and fundus appeared normal. The scope was then withdrawn into the esophagus. The GE junction was located at 36 cm to the incisors. small hiatal hernia noted. It appeared regular with superficial erosions consistent with LA grade B reflux esophagitis. Rest of the esophagus appeared normal. Patient tolerated the procedure well. Impression: 1. Colonoscopy revealed normal-appearing colon from rectum to cecum no evidence of colitis or colorectal neoplasia 2. Upper endoscopy revealed mild antral gastritis, small hiatal hernia and LA grade B reflux esophagitis . Recommendations: Findings of this examination were discussed with the patient as well as a family. She was advised to follow with the biopsy results. She will be seen in office in 2 weeks
[2020-09-16 11:26] VITALS: BP 105/70; PULSE 68; RESP 16
== END 2020-09-16 12:03 | disposition home or self-care (01) ==
LOC: ORWHC2ENDO 09:03
PROVIDERS: ATTEND Internal Medicine Gastroenterology
DX: K52.9 Noninfective gastroenteritis and colitis, unspecified (principal); K29.50 Unspecified chronic gastritis without bleeding; K21.00 Gastro-esophageal reflux disease with esophagitis, without bleeding; K44.9 Diaphragmatic hernia without obstruction or gangrene; E78.5 Hyperlipidemia, unspecified; G47.33 Obstructive sleep apnea (adult) (pediatric); Z79.899 Other long term (current) drug therapy; Z90.49 Acquired absence of other specified parts of digestive tract; Z98.890 Other specified postprocedural states; Z99.89 Dependence on other enabling machines and devices
CPT/HCPCS: 81025; 88305; 45380; 43239; J2405; J2001; J2704

== ENCOUNTER 2020-12-26 08:22 | Emergency (ER) | payer MEDICAID, OTHER ==
[2020-12-26 08:28] VITALS: BP 121/76; PULSE 101; RESP 20; TEMP 98.5
--- NOTE | 2020-12-26 08:39 | ED ---
Upper Extremity HPI - General Chief Complaint: Extremity Injury, Upper Stated Complaint: [facility] - Wrist Injury Time Seen by Provider: 12/26/20 08:29 Source: patient Mode of arrival: ambulatory Limitations: no limitations - History of Present Illness Initial Comments: Patient is a 35-year-old female presenting to emergency Department with complaints of left wrist pain after injury at work this morning. Patient states early this morning, he psych patient grabbed her left wrist and twisted. The patient states at rest she has minimal pain but when she goes to uses her left hand or left wrist she has increasing pain along the wrist area. She denies any previous surgeries of the left wrist. She denies any other complaints at this time. - Related Data Home Medications Medication Instructions Recorded Confirmed ALPRAZolam [Xanax] 0.25 mg PO DAILY PRN 08/29/15 09/16/20 Cholecalciferol [Vitamin D3 (25 6,000 unit PO DAILY 07/29/20 09/16/20 Mcg = 1000 Iu)] Dicyclomine [Bentyl] 10 mg PO BID PRN 07/29/20 09/16/20 FLUoxetine HCL [PROzac] 60 mg PO DAILY 07/29/20 09/16/20 traZODone HCL 50 mg PO HS 07/29/20 09/16/20 Previous Rx's Medication Instructions Recorded Atorvastatin [Lipitor] 20 mg PO HS #90 tab 07/30/20 Fenofibrate Nanocrystallized 145 mg PO DAILY #90 tablet 07/30/20 [Tricor] Allergies Allergy/AdvReac Type Severity Reaction Status Date / Time horse radish Allergy Anaphylaxis Uncoded 12/26/20 08:29 olives Allergy Rash/Hives Uncoded 12/26/20 08:29 Review of Systems ROS Statement: Those systems with pertinent positive or pertinent negative responses have been documented in the HPI. ROS Other: All systems not noted in ROS Statement are negative. Past Medical History Past Medical History: Sleep Apnea/CPAP/BIPAP Additional Past Medical History / Comment(s): depression, anxiety History of Any Multi-Drug Resistant Organisms: None Reported Past Surgical History: Appendectomy, Cholecystectomy Additional Past Surgical History / Comment(s): D&C, third molar removal Additional Past Anesthesia/Blood Transfusion Reaction / Comment(s): "Hard time waking up" Past Psychological History: Anxiety, Depression Smoking Status: Never smoker Past Alcohol Use History: None Reported Past Drug Use History: None Reported - Past Family History Mother Additional Family Medical History / Comment(s): Schizophrenia. General Exam - General Exam Comments Initial Comments: GENERAL: Patient is well-developed and well-nourished. Patient is nontoxic and in no acute distress. HEAD: Atraumatic, normocephalic. EYES: Pupils equal round and reactive to light, extraocular movements intact, sclera anicteric, conjunctiva are normal. Eyelids were unremarkable. ENT: Nares patent, oropharynx clear without exudates. Moist mucous membranes. NECK: Normal range of motion, supple without lymphadenopathy or JVD. LUNGS: Unlabored respirations. Breath sounds clear to auscultation bilaterally and equal. No wheezes rales or rhonchi. HEART: Regular rate and rhythm without murmurs, rubs or gallops. ABDOMEN: Soft, nontender, normoactive bowel sounds. No guarding, no rebound. No masses appreciated. : Deferred MUSCULOSKELETAL: Patient has pain with palpation of the left wrist medial aspect, increased pain with resisted pronation and supination. Neurovascular intact. There is no ob vious deformity, no obvious swelling. No clubbing or cyanosis. NEUROLOGICAL: Patient is alert and oriented x 3. Motor and sensory are also intact. Normal speech, normal gait. PSYCH: Normal mood, normal affect. SKIN: Warm, Dry, normal turgor, no rashes or lesions noted. Limitations: no limitations Course Vital Signs 12/26/20 08:25 Temperature 98.5 F Pulse Rate 101 H Respiratory 20 Rate Blood Pressure 121/76 O2 Sat by Pulse 99 Oximetry Medical Decision Making - Medical Decision Making Patient is a 35-year-old female here for left wrist pain after a patient grabbed her wrist while she was working. There is no obvious deformity or swelling noted she is neurovascular intact. X-rays show no acute fractures dislocations. Discussed the patient is most likely a strain versus sprain. Recommended ice the area, ibuprofen as needed for any discomfort. She does not work again for another 2 days. She is stable for discharge. She can follow-up with her regular physician. case discussed with Dr. Crawford. Disposition Clinical Impression: Left wrist sprain Disposition: HOME SELF-CARE Condition: Stable Instructions (If sedation given, give patient instructions): Wrist Injury (ED) Additional Instructions: Please return to the Emergency Department if symptoms worsen or any other concerns. May take Tylenol or ibuprofen for any discomfort. May apply ice the area. Follow-up with your regular doctor. Is patient prescribed a controlled substance at d/c from ED?: No Referrals: Humble Babb MD [Primary Care Provider] - 1-2 days
--- NOTE | 2020-12-26 09:15 | XR ---
EXAMINATION TYPE: XR wrist complete LT DATE OF EXAM: 12/26/2020 COMPARISON: NONE HISTORY: 35-year-old female with injury and pain TECHNIQUE: 4 views FINDINGS: There are seems to be a slight Madelung's deformity at the wrist. No acute fracture, subluxation, or dislocation is seen. Radiocarpal and distal radial ulnar joint as well as the midcarpal compartment a ppear intact. 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 No acute osseous abnormality seen.
== END 2020-12-26 09:31 | disposition home or self-care (01) ==
LOC: EC 08:22
DX: S63.502A Unspecified sprain of left wrist, initial encounter (principal); G47.30 Sleep apnea, unspecified; F41.9 Anxiety disorder, unspecified; F32.9 Major depressive disorder, single episode, unspecified; Z79.899 Other long term (current) drug therapy; Z91.018 Allergy to other foods; Z99.89 Dependence on other enabling machines and devices; W50.2XXA Accidental twist by another person, initial encounter; Y92.69 Other specified industrial and construction area as the place of occurrence of the external cause; Y99.0 Civilian activity done for income or pay
CPT/HCPCS: 99283

== ENCOUNTER → 2021-01-04 | Outpatient (CLI) | payer OTHER ==
--- NOTE | 2021-01-04 11:46 | XR ---
Left wrist HISTORY: Trauma and pain 4 views of the left wrist correlated to previous exam 12/26/2020 There is remodeling at the radiocarpal joint as noted on prior exam. Alignment and bone mineralizatio n are stable. No fracture or dislocation. Probable geode present in the distal scaphoid. IMPRESSION: Stable exam, Madelung deformity again noted.
== END | disposition home or self-care (01) ==
LOC: RADXRMAIN 11:06
PROVIDERS: ATTEND Emergency Medicine
DX: Q68.8 Other specified congenital musculoskeletal deformities (principal)

== ENCOUNTER → 2021-01-14 | Outpatient (CLI) | payer OTHER ==
--- NOTE | 2021-01-15 03:22 | MR ---
EXAMINATION TYPE: MR wrist LT wo con DATE OF EXAM: 01/14/2021 COMPARISON: None HISTORY: Lt wrist pain, sprain Multiplanar multiecho imaging of the left wrist was performed with no contrast. Carpal bones appear intact. There is no evidence of a fracture. There is no sign of avascular necrosi s. There is 2 mm cyst in the distal scaphoid bone. The flexor and extensor tendons of the wrist appear intact. The distal radius and ulna appear intact. There is no evidence of any significant joint effusion. The triangular cartilage appears intact. I s ee no bony destructive process. The visualized metacarpals are intact. Intercarpal joint spaces are f airly normal. There is slight increased fluid signal around the extensor carpi ulnaris tendon on the T2 images. The tendon appears intact. There is developmentally short ulna. IMPRESSION: Mild edema around the extensor carpi ulnar tendon consistent with some mild synovitis. No fracture.
== END | disposition home or self-care (01) ==
LOC: RADMRIMAIN 07:35
PROVIDERS: ATTEND Emergency Medicine
DX: M25.432 Effusion, left wrist (principal); M65.832 Other synovitis and tenosynovitis, left forearm

== ENCOUNTER → 2021-10-28 | Outpatient (CLI) | payer OTHER ==
--- NOTE | 2021-10-28 22:00 | SFUN ---
SLEEP CENTER FOLLOW UP NOTE DATE OF SERVICE: 10/28/2021 35-year-old lady has been followed in Sleep Center for treatment of obstructive sleep apnea-hypopnea syndrome. Patient continues to use her CPAP equipment every night. No snoring with the machine. [place] Sleepiness Scale today is 7 which is in normal range. I checked CPAP unit. Range of the pressure 5-14, average 12.9. Usage is every night every 7.5 hours per night. Leak is 0 L/minute, which is perfect. Apnea-hypopnea index slightly increased to 6.1. The patient increased her weight about 5 pounds since previous visit. MEDICATIONS: Xanax 0.25 mg on p.r.n. basis, Prozac 60 mg once a day, Relpax 40 mg. PHYSICAL EXAMINATION: GENERAL: Patient in no distress. BP 132/89, HR around 100, RR 18, height 5 feet 3-1/4 inches, weight 235.2 pounds, body mass index 41.3, temperature 97.2, oxygen saturation at room air 96%. Oropharynx: Extremely low position of soft palate, Mallampati 4. NECK: Supple, no JVD. Thyroid is not palpable. LUNGS: Clear to percussion and to auscultation. Good air exchange. No wheezing or rhonchi. HEART: S1, S2 regular. No murmurs, gallops, or rubs. ABDOMEN: Slightly obese. Soft and nontender. Bowel sounds are present. No organomegaly appreciated. EXTREMITIES: No clubbing or cyanosis. DIGITAL PRODUCTION MANAGER: Awake, alert, and oriented X3. Cranial nerves 2 to 7 intact. There is no fasciculation or atrophy. noted. No focal deficits observed. IMPRESSION: 1. Obstructive sleep apnea-hypopnea syndrome. Patient demonstrated great compliance with treatment benefitting from treatment. Apnea-hypopnea index slightly increased to 6.1. 2. Obesity, patient increased her weight 5 pounds. 3. Hypothyroidism. 4. Depression. 5. Anxiety. 6. History of insulin resistance. PLAN: 1. I will slight increase pressure in patient machine. It is in automatic regimen. Will be 5-15 cm of water. 2. Patient will continue to use PAP equipment every night for the whole night. 3. Sleep hygiene with regular time in bed for at least 7-1/2 to 8 hours. 4. Precautions related to driving. No driving if feeling sleepiness. 5. I will maintain all necessary prescription for PAP supplies including mask, tube, filters. 6. Watching weight. 7. Follow-up visit in 6 months or earlier if patient has any problems. Thank you very much for allowing me to participate in the management of your patient. Sincerely, Bryan Crabtree MD, PhD, FAASM Diplomat of [employer] Sleep Medicine [employer] of [place] [employer] [facility] [place] MMODL / SVETLANAN: [id number] /
== END | disposition home or self-care (01) ==
LOC: SLEEP 11:15
PROVIDERS: ATTEND Internal Medicine
DX: G47.33 Obstructive sleep apnea (adult) (pediatric) (principal); E03.9 Hypothyroidism, unspecified; F32.A Depression, unspecified; F41.9 Anxiety disorder, unspecified; Z86.39 Personal history of other endocrine, nutritional and metabolic disease

== ENCOUNTER → 2021-12-06 | Outpatient (CLI) | payer OTHER ==
[2021-12-06 14:38] LABS: Basophils # (A) 0.03 X 10*3/uL (0.00-0.10); Basophils % (A) 0.2 %; Eosinophils # (A) 0.08 X 10*3/uL (0.04-0.35); Eosinophils % (A) 0.6 %; HCT 42.9 % (37.2-46.3); HGB 13.8 g/dL (12.0-15.0); Lymphocytes # (A) 4.93 X 10*3/uL (0.90-5.00); Lymphocytes % (A) 36.6 %; MCH 28.8 pg (27.0-32.0); MCHC 32.2 g/dL (32.0-37.0); MCV 89.4 fL (80.0-97.0); Mean Platelet Volume 9.1 fL (9.5-12.2); Monocytes # (A) 0.78 X 10*3/uL (0.20-1.00); Monocytes % (A) 5.8 %; Neutrophils # (A) 7.58 X 10*3/uL (1.80-7.70); Neutrophils % (A) 56.3 %; Platelet Count 465 X 10*3/uL (140-440); RDW 12.9 % (11.5-14.5); WBC 13.47 X 10*3/uL (4.50-10.00)
[2021-12-06 14:54] LABS: ALT 98 U/L (8-44); AST 49 U/L (13-35); Albumin 4.7 g/dL (3.8-4.9); Albumin/Globulin Ratio 1.55 (1.60-3.17); Alkaline Phosphatase 109 U/L (41-126); BUN/Creat Ratio 16.59 Ratio (12.00-20.00); Blood Urea Nitrogen 10.4 mg/dL (9.0-27.0); Carbon Dioxide 21.4 mmol/L (20.0-27.5); Chloride 102 mmol/L (96-109); Globulin 3.1 g/dL (1.6-3.3); Glucose 79 mg/dL (70-110); LDL Cholesterol,Calculated 133.4 mg/dL (0.0-131.0); Non-African American GFR(CKD) 114.8 (60.0-200.0); Potassium 3.3 mmol/L (3.5-5.5); Sodium 140 mmol/L (135-145); Total Protein 7.8 g/dL (6.2-8.2)
[2021-12-06 15:11] LABS: Rheumatoid Factor, Qnt <10 IU/mL (0-15)
[2021-12-06 17:46] LABS: Erythrocyte Sedimentation Rate 20 mm/Hr (0-20)
== END | disposition home or self-care (01) ==
LOC: LABWHC1 07:47
PROVIDERS: ATTEND Nurse Practitioner Family
DX: R21 Rash and other nonspecific skin eruption (principal); R53.82 Chronic fatigue, unspecified; M79.10 Myalgia, unspecified site; E55.9 Vitamin D deficiency, unspecified; R25.2 Cramp and spasm; Z79.899 Other long term (current) drug therapy
CPT/HCPCS: 36415; 80053; 80061; 82306; 83735; 84443; 85025; 85652; 86038; 86431

== ENCOUNTER 2022-02-10 14:25 | Emergency (ER) | payer OTHER ==
[2022-02-10 14:47] VITALS: RESP 16
[2022-02-10] MEDS ORDERED: METOCLOPRAMIDE 5 MG/ML 2 ML VIAL IVP STA (15:33)
[2022-02-10] MEDS ORDERED: MORPHINE SULFATE 4 MG/ML SYRINGE IV STA (15:33)
[2022-02-10] MEDS ORDERED: SODIUM CHLORIDE 0.9% 1,000 ML IV STA (15:33)
--- NOTE | 2022-02-10 15:36 | ED ---
General Adult HPI - General Chief complaint: Abdominal Pain Stated complaint: Headache Time Seen by Provider: 02/10/22 15:28 Source: patient, RN notes reviewed, old records reviewed Mode of arrival: wheelchair Limitations: no limitations - History of Present Illness Initial comments: 28-year-old female in no acute distress presents to the emergency room with complaints of right upper quadrant pain for 2 days. She describes the pain as stabbing in nature and comes and goes. She states she seen her primary care Dr. Babb's office yesterday they did labs and an x-ray she has not gotten those results she was told that the pain got worse to go to the emergency room. She does have a history of cholecystectomy and appendectomy. She denies any fevers no vomiting or diarrhea but does have nausea -: days(s) (2) Location: abdomen (RUQ) Severity scale (1-10): 10 Quality: stabbing Consistency: intermittent Improves with: none Worsens with: other (palpation) Associated Symptoms: nausea/vomiting (no vomiting) Treatments Prior to Arrival: other (PCP yesterday labs and xr) - Related Data Home Medications Medication Instructions Recorded Confirmed ALPRAZolam [Xanax] 0.25 mg PO DAILY PRN 08/29/15 09/16/20 Cholecalciferol [Vitamin D3 (25 6,000 unit PO DAILY 07/29/20 09/16/20 Mcg = 1000 Iu)] Dicyclomine [Bentyl] 10 mg PO BID PRN 07/29/20 09/16/20 FLUoxetine HCL [PROzac] 60 mg PO DAILY 07/29/20 09/16/20 traZODone HCL 50 mg PO HS 07/29/20 09/16/20 Previous Rx's Medication Instructions Recorded Atorvastatin [Lipitor] 20 mg PO HS #90 tab 07/30/20 Fenofibrate Nanocrystallized 145 mg PO DAILY #90 tablet 07/30/20 [Tricor] Allergies Allergy/AdvReac Type Severity Reaction Status Date / Time horse radish Allergy Anaphylaxis Uncoded 02/10/22 14:44 olives Allergy Rash/Hives Uncoded 02/10/22 14:44 Review of Systems ROS Statement: Those systems with pertinent positive or pertinent negative responses have been documented in the HPI. ROS Other: All systems not noted in ROS Statement are negative. Past Medical History Past Medical History: Sleep Apnea/CPAP/BIPAP Additional Past Medical History / Comment(s): depression, anxiety History of Any Multi-Drug Resistant Organisms: None Reported Past Surgical History: Appendectomy, Cholecystectomy Additional Past Surgical History / Comment(s): D&C, third molar removal Additional Past Anesthesia/Blood Transfusion Reaction / Comment(s): "Hard time waking up" Past Psychological History: Anxiety, Depression Smoking Status: Never smoker Past Alcohol Use History: None Reported Past Drug Use History: None Reported - Past Family History Mother Additional Family Medical History / Comment(s): Schizophrenia. General Exam Limitations: no limitations General appearance: alert, in no apparent distress Eye exam: Present: normal appearance. Absent: scleral icterus, conjunctival injection ENT exam: Present: normal exam, normal oropharynx, mucous membranes moist Neck exam: Present: normal inspection, full ROM. Absent: tenderness, meningismus, lymphadenopathy Respiratory exam: Present: normal lung sounds bilaterally. Absent: respiratory distress, wheezes, rales, rhonchi, stridor, chest wall tenderness, accessory muscle use Cardiovascular Exam: Present: regular rate, normal heart sounds GI/Abdominal exam: Present: soft, tenderness (Right upper quadrant). Absent: distended, guarding, rebound, rigid Extremities exam: Present: normal capillary refill. Absent: pedal edema Back exam: Present: normal inspection. Absent: tenderness, CVA tenderness (R), CVA tenderness (L), rash noted Neurological exam: Present: alert, oriented X3 Psychiatric exam: Present: normal affect, normal mood Skin exam: Present: warm, dry, normal color. Absent: rash, cyanosis, diaphoretic, erythema Course Vital Signs 02/10/22 02/10/22 14:44 17:59 Temperature 97.3 F L 98.1 F Pulse Rate 84 72 Respiratory 16 16 Rate Blood Pressure 143/85 100/60 O2 Sat by Pulse 98 95 Oximetry Medical Decision Making - Medical Decision Making 28-year-old female presents with right upper quadrant pain for 2 days. She describes the pain as stabbing in nature and comes and goes. History of cholecystectomy and appendectomy. No significant leukocytosis, influenza coronavirus swabs are negative. Urinalysis is clear for infection. Electrolytes are unremarkable. Patient feeling better after IV fluids. Upon reexam abdomen soft and nontender. She states that she is ready to be discharged home. At this time I do not have a cause for the patient's abdominal pain. She was given Zofran to go home with for any further nausea and directed to follow up with primary care doctor or return to the emergency room with any new or worsening symptoms. Case discussed with Dr. Red - Lab Data Result diagrams: 02/10/22 15:57 02/10/22 15:57 Lab Results 02/10/22 02/10/22 02/10/22 Range/Units 15:35 15:57 15:57 WBC 12.5 H (3.8-10.6) k/uL RBC 5.09 (3.80-5.40) m/uL Hgb 14.6 (11.4-16.0) gm/dL Hct 44.4 (34.0-46.0) % MCV 87.2 (80.0-100.0) fL MCH 28.6 (25.0-35.0) pg MCHC 32.8 (31.0-37.0) g/dL RDW 12.7 (11.5-15.5) % Plt Count 419 (150-450) k/uL MPV 6.5 Neutrophils % 74 % Lymphocytes % 20 % Monocytes % 4 % Eosinophils % 1 % Basophils % 0 % Neutrophils # 9.3 H (1.3-7.7) k/uL Lymphocytes # 2.5 (1.0-4.8) k/uL Monocytes # 0.5 (0-1.0) k/uL Eosinophils # 0.1 (0-0.7) k/uL Basophils # 0.0 (0-0.2) k/uL Sodium (137-145) mmol/L Potassium (3.5-5.1) mmol/L Chloride (98-107) mmol/L Carbon Dioxide (22-30) mmol/L Anion Gap mmol/L BUN (7-17) mg/dL Creatinine (0.52-1.04) mg/dL Est GFR (CKD-EPI)AfAm (>60 ml/min/1.73 sqM) Est GFR (CKD-EPI)NonAf (>60 ml/min/1.73 sqM) Glucose (74-99) mg/dL Plasma Lactic Acid Jonathon (0.7-2.0) mmol/L Calcium (8.4-10.2) mg/dL Total Bilirubin (0.2-1.3) mg/dL AST (14-36) U/L ALT (4-34) U/L Alkaline Phosphatase (38-126) U/L Total Protein (6.3-8.2) g/dL Albumin (3.5-5.0) g/dL Amylase (30-110) U/L Lipase (23-300) U/L Urine Color Light Yellow Urine Appearance Clear (Clear) Urine pH 6.5 (5.0-8.0) Ur Specific [place] 1.005 (1.001-1.035) Urine Protein Negative (Negative) Urine Glucose (UA) Negative (Negative) Urine Ketones Negative (Negative) Urine Blood Negative (Negative) Urine Nitrite Negative (Negative) Urine Bilirubin Negative (Negative) Urine Urobilinogen <2.0 (<2.0) mg/dL Ur Leukocyte Esterase Negative (Negative) Urine HCG, Qual Not Detected (Not Detectd) Influenza Type A (PCR) (Not Detectd) Influenza Type B (PCR) (Not Detectd) RSV (PCR) (Not Detectd) SARS-CoV-2 (PCR) (Not Detectd) 02/10/22 02/10/22 02/10/22 Range/Units 15:57 15:57 15:57 WBC (3.8-10.6) k/uL RBC (3.80-5.40) m/uL Hgb (11.4-16.0) gm/dL Hct (34.0-46.0) % MCV (80.0-100.0) fL MCH (25.0-35.0) pg MCHC (31.0-37.0) g/dL RDW (11.5-15.5) % Plt Count (150-450) k/uL MPV Neutrophils % % Lymphocytes % % Monocytes % % Eosinophils % % Basophils % % Neutrophils # (1.3-7.7) k/uL Lymphocytes # (1.0-4.8) k/uL Monocytes # (0-1.0) k/uL Eosinophils # (0-0.7) k/uL Basophils # (0-0.2) k/uL Sodium 136 L (137-145) mmol/L Potassium 4.0 (3.5-5.1) mmol/L Chloride 104 (98-107) mmol/L Carbon Dioxide 22 (22-30) mmol/L Anion Gap 10 mmol/L BUN 12 (7-17) mg/dL Creatinine 0.60 (0.52-1.04) mg/dL Est GFR (CKD-EPI)AfAm >90 (>60 ml/min/1.73 sqM) Est GFR (CKD-EPI)NonAf >90 (>60 ml/min/1.73 sqM) Glucose 103 H (74-99) mg/dL Plasma Lactic Acid Jonathon 1.3 (0.7-2.0) mmol/L Calcium 9.4 (8.4-10.2) mg/dL Total Bilirubin 0.7 (0.2-1.3) mg/dL AST 84 H (14-36) U/L ALT 100 H (4-34) U/L Alkaline Phosphatase 115 (38-126) U/L Total Protein 7.5 (6.3-8.2) g/dL Albumin 4.5 (3.5-5.0) g/dL Amylase 42 (30-110) U/L Lipase 36 (23-300) U/L Urine Color Urine Appearance (Clear) Urine pH (5.0-8.0) Ur Specific [place] (1.001-1.035) Urine Protein (Negative) Urine Glucose (UA) (Negative) Urine Ketones (Negative) Urine Blood (Negative) Urine Nitrite (Negative) Urine Bilirubin (Negative) Urine Urobilinogen (<2.0) mg/dL Ur Leukocyte Esterase (Negative) Urine HCG, Qual (Not Detectd) Influenza Type A (PCR) Not Detected (Not Detectd) Influenza Type B (PCR) Not Detected (Not Detectd) RSV (PCR) Not Detected (Not Detectd) SARS-CoV-2 (PCR) Not Detected (Not Detectd) Disposition Clinical Impression: Abdominal pain, Nausea Disposition: HOME SELF-CARE Condition: Good Instructions (If sedation given, give patient instructions): Acute Nausea and Vomiting (ED), Abdominal Pain (ED) Additional Instructions: Increase your fluid intake. Follow-up with your primary care doctor as scheduled tomorrow. Take Zofran as needed for any nausea. Return to the emergency room with any new or concerning symptoms. Is patient prescribed a controlled substance at d/c from ED?: No Referrals: Humble Babb MD [Primary Care Provider] - 1-2 days Time of Disposition: 17:44
[2022-02-10 16:23] LABS: Basophils % (A) 0 %; Eosinophils # (A) 0.1 k/uL (0-0.7); Eosinophils % (A) 1 %; HCT 44.4 % (34.0-46.0); HGB 14.6 gm/dL (11.4-16.0); Lymphocytes # (A) 2.5 k/uL (1.0-4.8); Lymphocytes % (A) 20 %; MCH 28.6 pg (25.0-35.0); MCHC 32.8 g/dL (31.0-37.0); MCV 87.2 fL (80.0-100.0); Mean Platelet Volume 6.5; Monocytes # (A) 0.5 k/uL (0-1.0); Monocytes % (A) 4 %; Neutrophils # (A) 9.3 k/uL (1.3-7.7); Neutrophils % (A) 74 %; Platelet Count 419 k/uL (150-450); RBC 5.09 m/uL (3.80-5.40); RDW 12.7 % (11.5-15.5); WBC 12.5 k/uL (3.8-10.6)
[2022-02-10 16:36] LABS: ALT 100 U/L (4-34); AST 84 U/L (14-36); African American GFR (CKD) >90 (>60 ml/min/1.73 sqM); Albumin 4.5 g/dL (3.5-5.0); Alkaline Phosphatase 115 U/L (38-126); Amylase 42 U/L (30-110); Anion Gap 10 mmol/L; Blood Urea Nitrogen 12 mg/dL (7-17); Calcium 9.4 mg/dL (8.4-10.2); Carbon Dioxide 22 mmol/L (22-30); Chloride 104 mmol/L (98-107); Glucose 103 mg/dL (74-99); Lipase 36 U/L (23-300); Non-African American GFR(CKD) >90 (>60 ml/min/1.73 sqM); Sodium 136 mmol/L (137-145); Total Bilirubin 0.7 mg/dL (0.2-1.3); Total Protein 7.5 g/dL (6.3-8.2)
[2022-02-10 17:32] LABS: Appearance,Urine Clear (Clear); Bilirubin,Urine Negative (Negative); Blood,Urine Negative (Negative); Color,Urine Light Yellow; Glucose,Urine (UA) Negative (Negative); Ketones,Urine Negative (Negative); Leukocyte Esterase,Urine Negative (Negative); Nitrite,Urine Negative (Negative); PH, Urine 6.5 (5.0-8.0); Protein,Urine Negative (Negative); Specific Gravity,Urine 1.005 (1.001-1.035); Urobilinogen,Urine <2.0 mg/dL (<2.0)
[2022-02-10] MEDS ORDERED: ONDANSETRON 4 MG ODT STARTER PACK 2 TAB BTL PO STA (17:45)
[2022-02-10 18:00] VITALS: BP 100/60; PULSE 72; TEMP 98.1
== END 2022-02-10 18:07 | disposition home or self-care (01) ==
LOC: EC 14:25
DX: R11.0 Nausea (principal); R10.9 Unspecified abdominal pain; Z20.822 Contact with and (suspected) exposure to COVID-19; Z91.048 Other nonmedicinal substance allergy status; Z88.9 Allergy status to unspecified drugs, medicaments and biological substances
CPT/HCPCS: 36415; 80053; 82150; 83605; 83690; 85025; 81003; 81025; 87636; 99284; 96374; 96375; 96361; J2270; J2765; S0119; 96376

== ENCOUNTER 2022-11-13 14:31 | Emergency (ER) | payer OTHER ==
[2022-11-13 14:40] VITALS: BP 134/95; PULSE 99; RESP 18; TEMP 99
[2022-11-13] MEDS ORDERED: ACET/COD 300 MG/30 MG STARTER PACK 6 TAB BTL PO STA (15:01)
--- NOTE | 2022-11-13 15:03 | ED ---
Skin/Abscess/FB HPI - General Chief complaint: Skin/Abscess/Foreign Body Stated complaint: facial abscess Time Seen by Provider: 11/13/22 14:44 Source: patient, RN notes reviewed Mode of arrival: ambulatory Limitations: no limitations - History of Present Illness Initial comments: 28-year-old female presents emergency Department chief complaint of left-sided facial pain and swelling. Patient states started last couple days. Patient states his mild drainage noted. Patient states she had increase in swelling throughout the night states it is painful. Denies any pain with ocular movement no headache no ear or chills no neck Stiffness or difficulty swallowing. - Related Data Home Medications Medication Instructions Recorded Confirmed ALPRAZolam [Xanax] 0.25 mg PO DAILY PRN 08/29/15 09/16/20 Cholecalciferol [Vitamin D3 (25 6,000 unit PO DAILY 07/29/20 09/16/20 Mcg = 1000 Iu)] Dicyclomine [Bentyl] 10 mg PO BID PRN 07/29/20 09/16/20 FLUoxetine HCL [PROzac] 60 mg PO DAILY 07/29/20 09/16/20 traZODone HCL 50 mg PO HS 07/29/20 09/16/20 Previous Rx's Medication Instructions Recorded Atorvastatin [Lipitor] 20 mg PO HS #90 tab 07/30/20 Fenofibrate Nanocrystallized 145 mg PO DAILY #90 tablet 07/30/20 [Tricor] Cephalexin [Keflex] 500 mg PO Q6HR #40 cap 11/13/22 Ibuprofen [Motrin] 600 mg PO Q8HR PRN #20 tab 11/13/22 Sulfamethox-Tmp 800-160Mg [Bactrim 1 each PO Q12HR #20 tab 11/13/22 Ds] Allergies Allergy/AdvReac Type Severity Reaction Status Date / Time horse radish Allergy Anaphylaxis Uncoded 11/13/22 14:40 olives Allergy Rash/Hives Uncoded 11/13/22 14:40 Review of Systems ROS Statement: Those systems with pertinent positive or pertinent negative responses have been documented in the HPI. ROS Other: All systems not noted in ROS Statement are negative. Past Medical History Past Medical History: Sleep Apnea/CPAP/BIPAP Additional Past Medical History / Comment(s): depression, anxiety History of Any Multi-Drug Resistant Organisms: None Reported Past Surgical History: Appendectomy, Cholecystectomy Additional Past Surgical History / Comment(s): D&C, third molar removal Additional Past Anesthesia/Blood Transfusion Reaction / Comment(s): "Hard time waking up" Past Psychological History: Anxiety, Depression Smoking Status: Never smoker Past Alcohol Use History: None Reported Past Drug Use History: None Reported - Past Family History Mother Additional Family Medical History / Comment(s): Schizophrenia. General Exam Limitations: no limitations General appearance: alert, in no apparent distress Head exam: Present: atraumatic, normocephalic, normal inspection Eye exam: Present: normal appearance, PERRL, EOMI. Absent: scleral icterus, conjunctival injection, periorbital swelling ENT exam: Present: normal oropharynx, mucous membranes moist. Absent: normal exam (Moderate left-sided facial erythema, swelling noted, there is a mildly draining abscess left cheek region) Neck exam: Present: normal inspection, full ROM. Absent: tenderness, meningismus, lymphadenopathy Respiratory exam: Present: normal lung sounds bilaterally. Absent: respiratory distress, wheezes, rales, rhonchi, stridor Cardiovascular Exam: Present: regular rate, normal rhythm, normal heart sounds. Absent: systolic murmur, diastolic murmur, rubs, gallop, clicks Course Vital Signs 11/13/22 14:36 Temperature 99.0 F Pulse Rate 99 Respiratory 18 Rate Blood Pressure 134/95 O2 Sat by Pulse 97 Oximetry Medical Decision Making - Medical Decision Making 36-year-old female presented for facial swelling she has draining abscess we discuss warm compresses oral antibiotics and return parameters with close follow-up. Was pt. sent in by a medical professional or institution? @ -no Did you speak to anyone other than the patient for history? @ -no Did you review nursing and triage notes? @ -agree and reviewed Were old charts reviewed? @ -no Differential Diagnosis? @Facial cellulitis, facial abscess, dental abscess, EKG interpreted by me (3pts min.)? @ -no X-rays interpreted by me (1pt min.)? @ -no CT interpreted by me (1pt min.)? @ -no U/S interpreted by me (1pt. min.)? @ -no What testing was considered but not performed? (CT, X-rays, U/S, labs)? Why? @Patient CT was considered given amount of facial swelling though there is current drainage and acute his symptoms patient will try oral course antibiotics What meds were considered but not given? Why? @ -no Did you discuss the management of the patient with other professionals? @ -no Did you reconcile home meds? @ -no Was smoking cessation discussed for >3mins.? @ -no Was critical care preformed (if so, how long)? @ -no Were there social determinants of health that impacted care today? How? (Homelessness, low income, unemployed, alcoholism, drug addiction, transportation, low edu. Level, literacy, decrease access to med. care, skilled nursing, rehab)? @ -no Was there de-escalation of care discussed even if they declined? (Discuss DNR or withdrawal of care, Hospice)? @ -no What co-morbidities impacted this encounter? (DM, HTN, Smoking, COPD, CAD, Cancer, CVA, Hep., AIDS, mental health diagnosis, sleep apnea, morbid obesity)? @ -no Was patient admitted / discharged? @ -discharged Undiagnosed new problem with uncertain prognosis? @ -no Drug Therapy requiring intensive monitoring for toxicity (Heparin, Nitro, Insulin, Cardizem)? @ no Were any procedures done? @ -no Diagnosis/symptom? @ -Facial abscess Acute, or Chronic, or Acute on Chronic? @ -acute Uncomplicated (without systemic symptoms) or Complicated (systemic symptoms)? @ -Uncomplicated Side effects of treatment? @ -no Exacerbation, Progression, or Severe Exacerbation] @ no Poses a threat to life or bodily function? @ -no Disposition Clinical Impression: Facial abscess Disposition: HOME SELF-CARE Condition: Stable Instructions (If sedation given, give patient instructions): Abscess (ED) Additional Instructions: Please return to the Emergency Department if symptoms worsen or any other concerns. Prescriptions: Sulfamethox-Tmp 800-160Mg [Bactrim Ds] 1 each PO Q12HR #20 tab Cephalexin [Keflex] 500 mg PO Q6HR #40 cap Ibuprofen [Motrin] 600 mg PO Q8HR PRN #20 tab PRN Reason: Pain Is patient prescribed a controlled substance at d/c from ED?: No Referrals: Humble Babb MD [Primary Care Provider] - 1-2 days Time of Disposition: 15:03
== END 2022-11-13 15:09 | disposition home or self-care (01) ==
LOC: EC 14:31
DX: L02.01 Cutaneous abscess of face (principal); F41.9 Anxiety disorder, unspecified; F32.A Depression, unspecified; G47.30 Sleep apnea, unspecified; Z91.018 Allergy to other foods
CPT/HCPCS: 99283

== ENCOUNTER 2023-03-23 07:06 | Emergency (ER) | payer OTHER ==
[2023-03-23] MEDS ORDERED: IPRATROPIUM-ALBUTEROL 3 ML NEB INHALATION STA (07:59)
[2023-03-23] MEDS ORDERED: DEXAMETHASONE SOD PHOSPHATE 10 MG/ML 1 ML VIAL IM STA (07:59)
--- NOTE | 2023-03-23 08:22 | XR ---
EXAMINATION TYPE: XR chest 2V DATE OF EXAM: 03/23/2023 COMPARISON: 07/29/2020 TECHNIQUE: PA and lateral views submitted. HISTORY: Cough FINDINGS: The lungs are clear and there is no pneumothorax, pleural effusion, or focal pneumonia. Heart size normal and no overt failure. Osseous structures intact. Surgical clips in the right upper quadrant. IMPRESSION: 1. No acute process.
[2023-03-23] MEDS ORDERED: AZITHROMYCIN 500 MG TAB PO STA (08:23)
--- NOTE | 2023-03-23 08:42 | ED ---
URI HPI - General Chief Complaint: Upper Respiratory Infection Stated Complaint: COUGH Time Seen by Provider: 03/23/23 07:23 Source: patient, RN notes reviewed Mode of arrival: ambulatory Limitations: no limitations - History of Present Illness Initial Comments: This is a 37-year-old female who presents to the emergency department for coughing, congestion, and shortness of breath. Symptoms started 8 days ago. She originally went to urgent care and was started on a course of prednisone with an albuterol inhaler. Feels like she got better after a couple of days, and symptoms then worsened again. She has minor relief with the albuterol inhaler, but states that it was not long lasting. Also states that her coughing is difficult to control. Denies any history of asthma or other respiratory illnesses. She is not a smoker. Denies any fevers or sick contacts. Denies any sore throat, chest pain, palpitations, abdominal pain, nausea, vomiting, diarrhea, back pain, or headaches. MD Complaint: cough, nasal congestion, other (Shortness of breath) Onset/Timin -: days(s) - Related Data Home Medications Medication Instructions Recorded Confirmed ALPRAZolam [Xanax] 0.25 mg PO DAILY PRN 08/29/15 09/16/20 Cholecalciferol [Vitamin D3 (25 6,000 unit PO DAILY 07/29/20 09/16/20 Mcg = 1000 Iu)] Dicyclomine [Bentyl] 10 mg PO BID PRN 07/29/20 09/16/20 FLUoxetine HCL [PROzac] 60 mg PO DAILY 07/29/20 09/16/20 traZODone HCL 50 mg PO HS 07/29/20 09/16/20 Previous Rx's Medication Instructions Recorded Atorvastatin [Lipitor] 20 mg PO HS #90 tab 07/30/20 Fenofibrate Nanocrystallized 145 mg PO DAILY #90 tablet 07/30/20 [Tricor] Cephalexin [Keflex] 500 mg PO Q6HR #40 cap 11/13/22 Ibuprofen [Motrin] 600 mg PO Q8HR PRN #20 tab 11/13/22 Sulfamethox-Tmp 800-160Mg [Bactrim 1 each PO Q12HR #20 tab 11/13/22 Ds] Azithromycin [Zithromax] 250 mg PO DAILY 4 Days #4 tab 03/23/23 Promethazine/Dextromethorphan 5 ml PO Q4-6H PRN #473 ml 03/23/23 [Promethazine-Dm Syrup] Allergies Allergy/AdvReac Type Severity Reaction Status Date / Time horse radish Allergy Anaphylaxis Uncoded 03/23/23 07:18 olives Allergy Rash/Hives Uncoded 03/23/23 07:18 Review of Systems ROS Statement: Those systems with pertinent positive or pertinent negative responses have been documented in the HPI. ROS Other: All systems not noted in ROS Statement are negative. Past Medical History Past Medical History: Sleep Apnea/CPAP/BIPAP Additional Past Medical History / Comment(s): depression, anxiety History of Any Multi-Drug Resistant Organisms: None Reported Past Surgical History: Appendectomy, Cholecystectomy Additional Past Surgical History / Comment(s): D&C, third molar removal Additional Past Anesthesia/Blood Transfusion Reaction / Comment(s): "Hard time waking up" Past Psychological History: Anxiety, Depression Smoking Status: Vaper Past Alcohol Use History: None Reported Past Drug Use History: Marijuana - Past Family History Mother Additional Family Medical History / Comment(s): Schizophrenia. General Exam Limitations: no limitations General appearance: alert, in no apparent distress Head exam: Present: atraumatic, normocephalic, normal inspection Respiratory exam: Present: normal lung sounds bilaterally, wheezes. Absent: respiratory distress, rales, rhonchi, stridor Cardiovascular Exam: Present: regular rate, normal rhythm, normal heart sounds. Absent: systolic murmur, diastolic murmur, rubs, gallop, clicks Neurological exam: Present: alert, oriented X3, CN II-XII intact Psychiatric exam: Present: normal affect, normal mood Skin exam: Present: warm, dry, intact, normal color. Absent: rash Course Vital Signs 03/23/23 03/23/23 03/23/23 07:15 08:31 08:39 Temperature 97.6 F Pulse Rate 72 76 80 Respiratory 18 Rate Blood Pressure 120/82 O2 Sat by Pulse 98 Oximetry 03/23/23 09:15 Temperature 98.2 F Pulse Rate 75 Respiratory 20 Rate Blood Pressure 110/75 O2 Sat by Pulse 97 Oximetry Medical Decision Making - Medical Decision Making This is a 37-year-old female who presents to the emergency department for coughing, congestion, and shortness of breath. Was pt. sent in by a medical professional or institution? @ -No Did you speak to anyone other than the patient for history? @ -No Did you review nursing and triage notes? @ -Yes, and I agree, it is accurate with regards to the patient's symptoms. Were old charts reviewed? @ -No Differential Diagnosis? @ -Differential Cough: Influenza, Covid, RSV, croup, allergic rhinitis, GERD, pneumonia, bronchitis, COPD, viral pharyngitis, streptococcal pharyngitis, this is not meant to be an all-inclusive list. X-rays interpreted by me (1pt min.)? @ -Chest x-ray obtained, my interpretation identifies no localized consolidations or infiltrates. What testing was considered but not performed? (CT, X-rays, U/S, labs)? Why? @ -None What meds were considered but not given? Why? @ -None Did you discuss the management of the patient with other professionals? @ -No Did you reconcile home meds? @ -No Was smoking cessation discussed for >3mins.? @ -No Was critical care preformed (if so, how long)? @ -No Were there social determinants of health that impacted care today? How? (Homelessness, low income, unemployed, alcoholism, drug addiction, transportation, low edu. Level, literacy, decrease access to med. care, snf, rehab)? @ -No Was there de-escalation of care discussed even if they declined? (Discuss DNR or withdrawal of care, Hospice)? @ -No What co-morbidities impacted this encounter? (DM, HTN, Smoking, COPD, CAD, Cancer, CVA, Hep., AIDS, mental health diagnosis, sleep apnea, morbid obesity)? @ -JOHN Was patient admitted / discharged? @ -Discharged. Chest x-ray obtained revealing no acute findings. Patient negative for Covid, influenza, and RSV. Based on the current recommendations, given that symptoms are worsening after initially improving, will treat the patient with a course of antibiotics. She was given a dose of azithromycin in the emergency department. Prescription for an additional 4 days provided. She was also given a prescription for promethazine DM cough syrup. Advised she continue to use her albuterol inhaler as needed for additional symptomatic manag ement. She will otherwise continue with supportive care. Undiagnosed new problem with uncertain prognosis? @ -None Drug Therapy requiring intensive monitoring for toxicity (Heparin, Nitro, Insulin, Cardizem)? @ -None Were any procedures done? @ -None Diagnosis/symptom? @ -Bronchitis Acute, or Chronic, or Acute on Chronic? @ -Acute Uncomplicated (without systemic symptoms) or Complicated (systemic symptoms)? @ -Uncomplicated Side effects of treatment? @ -None Exacerbation, Progression, or Severe Exacerbation] @ -Not applicable Poses a threat to life or bodily function? @ -No Return precautions reviewed in depth, the patient is instructed to return to the emergency department with any new, worsening, or concerning symptoms. Patient verbalized understanding. This case was discussed in detail with the attending ED physician, Dr. Red. Presentation, findings, and treatment plan discussed in detail as well. - Lab Data Lab Results 03/23/23 Range/Units 07:31 Influenza Type A (PCR) Not Detected (Not Detectd) Influenza Type B (PCR) Not Detected (Not Detectd) RSV (PCR) Not Detected (Not Detectd) SARS-CoV-2 (PCR) Not Detected (Not Detectd) - Radiology Data Radiology results: report reviewed, image reviewed Disposition Clinical Impression: Bronchitis Disposition: HOME SELF-CARE Instructions (If sedation given, give patient instructions): Acute Bronchitis (ED) Additional Instructions: Return to the emergency department with any new, worsening, or concerning symptoms. Use use the cough medication every 4-6 hours as needed. Be aware that this may make you sleepy. Take the antibiotic as prescribed for 4 days. Take your next dose tomorrow, as you received a dose in the emergency department today. You can also continue to use the albuterol inhaler every 4-6 hours. Follow up with your primary care provider in 1-2 days. Prescriptions: Promethazine/Dextromethorphan [Promethazine-Dm Syrup] 5 ml PO Q4-6H PRN #473 ml PRN Reason: Cough Azithromycin [Zithromax] 250 mg PO DAILY 4 Days #4 tab Is patient prescribed a controlled substance at d/c from ED?: No Referrals: Humble Babb MD [Primary Care Provider] - 1-2 days
[2023-03-23 09:16] VITALS: BP 110/75; PULSE 75; RESP 20; TEMP 98.2
== END 2023-03-23 09:16 | disposition home or self-care (01) ==
LOC: EC 07:06
DX: J20.9 Acute bronchitis, unspecified (principal); F41.9 Anxiety disorder, unspecified; F32.A Depression, unspecified; F17.290 Nicotine dependence, other tobacco product, uncomplicated; F12.90 Cannabis use, unspecified, uncomplicated; Z91.018 Allergy to other foods; Z79.899 Other long term (current) drug therapy; Z20.822 Contact with and (suspected) exposure to COVID-19
CPT/HCPCS: 94640; 87636; 71046; 99283; 96372; J1100